=== PATIENT | male | born 1955 | race Caucasian/White ===

== ENCOUNTER 2017-03-16 21:58 | Inpatient (IN) | payer MEDICAID ==
[2017-03-16 22:50] LABS: ADD MAN DIFF? NO
[2017-03-16 22:55] LABS: WHITE BLOOD COUNT 6.7 10^3/ul (4.8-10.8)
[2017-03-16 22:55] LABS: BASOPHILS % 0.3 % (0.0-2.0); EOSINOPHILS # 0.1 10^3/ul (0.0-0.5); EOSINOPHILS % 1.2 % (0.0-7.0); HEMOGLOBIN 11.3 g/dl (14.0-18.0); LYMPHOCYTES # 1.2 10^3/ul (0.8-2.9); LYMPHOCYTES % 18.4 % (15.0-51.0); MEAN CORPUSCULAR HEMOGLOBIN 32.5 pg (29.0-33.0); MEAN CORPUSCULAR HGB CONC 32.3 g/dl (32.0-37.0); MEAN CORPUSCULAR VOLUME 100.6 fl (82.0-101.0); MONOCYTE # 0.6 10^3/ul (0.3-0.9); MONOCYTES % 9.4 % (0.0-11.0); NEUTROPHIL # 4.7 10^3/ul (1.6-7.5); NEUTROPHILS % 70.4 % (39.0-77.0); PLATELET COUNT 196 10^3/UL (140-415); RED BLOOD COUNT 3.48 10^6/ul (4.70-6.10); RED CELL DISTRIBUTION WIDTH 13.3 % (11.5-14.5)
[2017-03-16] MEDS: SODIUM CHLORIDE 0.9% 1L BAG IV* (22:57)
[2017-03-16 23:15] LABS: INR 1.09; PROTIME 14.2 Sec (11.9-14.9); PT RATIO 1.1
[2017-03-16 23:22] LABS: ALANINE AMINOTRANSFERASE 33 IU/L (13-69); ALBUMIN 3.9 g/dl (3.3-4.9); ALBUMIN/GLOBULIN RATIO 1.21; ALKALINE PHOSPHATASE 98 IU/L (42-121); ANION GAP 19 (8-16); ASPARTATE AMINO TRANSFERASE 28 IU/L (15-46); BILIRUBIN,INDIRECT 0.2 mg/dl (0-1.1); BILIRUBIN,TOTAL 0.2 mg/dl (0.2-1.3); BLOOD UREA NITROGEN 19 mg/dl (7-20); CALCIUM 9.2 mg/dl (8.4-10.2); CARBON DIOXIDE 32 mmol/L (21-31); CHLORIDE 94 mmol/L (97-110); CREATININE 2.42 mg/dl (0.61-1.24); GLUCOSE 111 mg/dl (70-220); POTASSIUM 3.9 mmol/L (3.5-5.1); SODIUM 141 mmol/L (135-144); TOTAL PROTEIN 7.1 g/dl (6.1-8.1)
[2017-03-16 23:24] LABS: LACTIC ACID 2.8 mmol/L (0.5-2.0)
[2017-03-16 23:32] LABS: TROPONIN-I 0.035 ng/ml (0.00-0.12)
[2017-03-17] MEDS: CEFEPIME 2GM/50 ML (PMX) 50 ML IVPB (00:13)
[2017-03-17] MEDS: ONDANSETRON 4 MG INJ IV ×4 (00:30→09:44)
[2017-03-17] MEDS: NORepinephrine 8MG/250 ML (PMX 250 ML IV (01:07)
[2017-03-17 01:34] LABS: LACTIC ACID 1.4 mmol/L (0.5-2.0)
[2017-03-17] MEDS: morphine 4 MG/ML VIAL IV (01:50)
[2017-03-17 01:58] LABS: ADD UMIC NO; UR ASCORBIC ACID NEGATIVE (NEGATIVE); UR BILIRUBIN (Dip) NEGATIVE (NEGATIVE); UR BLOOD (Dip) NEGATIVE (NEGATIVE); UR CLARITY SLIGHTLY CLOUDY (CLEAR); UR COLOR YELLOW (YELLOW); UR GLUCOSE (Dip) NEGATIVE (NEGATIVE); UR KETONES (Dip) NEGATIVE (NEGATIVE); UR LEUKOCYTE ESTERASE (Dip) NEGATIVE Leu/ul (NEGATIVE); UR MUCUS FEW /HPF (NONE SEEN); UR NITRITE (Dip) NEGATIVE (NEGATIVE); UR RBC 1 /HPF (0-5); UR SPECIFIC GRAVITY (Dip) 1.009 (1.003-1.030); UR TOTAL PROTEIN (Dip) NEGATIVE (NEGATIVE); UR UROBILINOGEN (Dip) NEGATIVE (NEGATIVE); UR WBC 2 /HPF (0-5)
[2017-03-17 03:42] LABS: LACTIC ACID 0.9 mmol/L (0.5-2.0)
[2017-03-17] MEDS: SOD CHLORIDE 0.9% 1,000 ML IV (04:17)
[2017-03-17] MEDS: CLINDAMYCIN 900 MG/D5W (PMX) 50 ML IVPB (04:18)
[2017-03-17] MEDS: ASPIRIN 325 MG TAB PO (04:47)
[2017-03-17] MEDS: METOCLOPRAMIDE 10 MG INJ IV (04:47)
[2017-03-17] MEDS: morphine 10 MG INJ IV (04:48)
[2017-03-17 06:09] LABS: CREATINE KINASE 110 IU/L (23-200)
[2017-03-17 06:21] LABS: CK INDEX 2.6; CK-MB 2.85 ng/ml (0.0-2.4)
[2017-03-17] MEDS: HYDROmorphONE 1 MG/ML SYG IV (09:18)
[2017-03-17] MEDS ORDERED: NACL 0.9% 3 ML SYG IV (11:00)
[2017-03-17] MEDS ORDERED: DOCUSATE SODIUM 100 MG CAP PO (11:00)
[2017-03-17] MEDS ORDERED: IPRATROPIUM (NEB) 0.5 MG/2.5 ML AMP NEB (11:00)
[2017-03-17] MEDS ORDERED: MAGNESIUM HYDROXIDE 30ML CUP PO (11:00)
[2017-03-17 11:28] LABS: CREATINE KINASE 123 IU/L (23-200)
[2017-03-17 11:37] LABS: CK INDEX 2.9; TROPONIN-I 0.083 ng/ml (0.00-0.12)
[2017-03-17 11:45] LABS: CK-MB 3.53 ng/ml (0.0-2.4)
[2017-03-17 12:18] LABS: ADD MAN DIFF? NO
[2017-03-17 12:20] LABS: WHITE BLOOD COUNT 5.1 10^3/ul (4.8-10.8)
[2017-03-17 12:20] LABS: BASOPHILS % 0.4 % (0.0-2.0); EOSINOPHILS # 0.1 10^3/ul (0.0-0.5); EOSINOPHILS % 2.1 % (0.0-7.0); HEMATOCRIT 26.3 % (42.0-52.0); HEMOGLOBIN 8.5 g/dl (14.0-18.0); LYMPHOCYTES % 19.9 % (15.0-51.0); MEAN CORPUSCULAR HEMOGLOBIN 33.1 pg (29.0-33.0); MEAN CORPUSCULAR HGB CONC 32.3 g/dl (32.0-37.0); MEAN CORPUSCULAR VOLUME 102.3 fl (82.0-101.0); MEAN PLATELET VOLUME 10.6 fl (7.4-10.4); MONOCYTE # 0.5 10^3/ul (0.3-0.9); MONOCYTES % 10.5 % (0.0-11.0); NEUTROPHIL # 3.4 10^3/ul (1.6-7.5); NEUTROPHILS % 66.9 % (39.0-77.0); PLATELET COUNT 150 10^3/UL (140-415); RED BLOOD COUNT 2.57 10^6/ul (4.70-6.10); RED CELL DISTRIBUTION WIDTH 13.4 % (11.5-14.5)
[2017-03-17 12:28] LABS: ANION GAP 12 (8-16); BLOOD UREA NITROGEN 16 mg/dl (7-20); CALCIUM 6.9 mg/dl (8.4-10.2); CARBON DIOXIDE 26 mmol/L (21-31); CHLORIDE 107 mmol/L (97-110); GLUCOSE 87 mg/dl (70-220); POTASSIUM 3.2 mmol/L (3.5-5.1); SODIUM 142 mmol/L (135-144)
[2017-03-17] MEDS ORDERED: SENNA TAB PO (12:30)
[2017-03-17] MEDS: ALBUTEROL/IPRATROPIUM (NEB) 3 ML AMP HHN ×3 (13:30→20:20)
[2017-03-17] MEDS: POTASSIUM CHLORIDE (SR) 20 MEQ TAB PO (15:06)
[2017-03-17] MEDS: MAGNESIUM SULFATE 4 GM/100 ML 100 ML IVPB (15:11)
[2017-03-17] MEDS: morphine 2 MG INJ IV (15:11)
[2017-03-17] MEDS: DRONABINOL 2.5 MG CAP PO (17:43)
[2017-03-17 20:26] LABS: CREATINE KINASE 97 IU/L (23-200)
[2017-03-17] MEDS: morphine (ER) 15 MG TAB PO (20:28)
[2017-03-17] MEDS: APIXABAN 5 MG TABLET PO (20:29)
[2017-03-17 20:38] LABS: CK INDEX 2.5; TROPONIN-I 0.038 ng/ml (0.00-0.12)
[2017-03-17 20:42] LABS: CK-MB 2.38 ng/ml (0.0-2.4)
[2017-03-17] MEDS ORDERED: FAMOTIDINE 20 MG TAB PO (21:00)
[2017-03-18] MEDS: ALBUTEROL/IPRATROPIUM (NEB) 3 ML AMP HHN ×6 (00:16→21:28)
[2017-03-18] MEDS: morphine 2 MG INJ IV ×5 (00:35→23:47)
[2017-03-18 01:34] LABS: CREATINE KINASE 79 IU/L (23-200)
[2017-03-18 01:46] LABS: CK INDEX 2.4; TROPONIN-I 0.037 ng/ml (0.00-0.12)
[2017-03-18] MEDS: ACETAMINOPHEN 650MG/20.3ML CUP PO (03:37)
[2017-03-18] MEDS: PANTOPRAZOLE (EC) 40 MG TAB PO (06:42)
[2017-03-18] MEDS: LEVOTHYROXINE 75 MCG TAB PO (08:41)
[2017-03-18] MEDS: APIXABAN 5 MG TABLET PO ×2 (08:42→20:39)
[2017-03-18] MEDS: DRONABINOL 2.5 MG CAP PO ×3 (08:42→16:55)
[2017-03-18] MEDS: morphine (ER) 15 MG TAB PO ×2 (08:43→20:38)
[2017-03-18] MEDS: ESCITALOPRAM 10 MG TAB PO (08:44)
[2017-03-18 09:51] LABS: CREATINE KINASE 65 IU/L (23-200)
[2017-03-18 10:02] LABS: CK INDEX 1.9; TROPONIN-I 0.021 ng/ml (0.00-0.12)
[2017-03-18 10:04] LABS: CK-MB 1.21 ng/ml (0.0-2.4)
[2017-03-18 11:00] LABS: CHOLESTEROL 82 mg/dl (100-200)
[2017-03-18 11:00] LABS: CHOL/HDL RATIO 2.7 RATIO; HDL CHOLESTEROL 30 mg/dl (30-78); LDL CHOLESTEROL,CALCULATED 36 mg/dl; TRIGLYCERIDES 82 mg/dl (0-149)
[2017-03-18] MEDS: HYDROCODONE/HOMATROPINE 5ML CUP PO ×3 (12:19→22:34)
[2017-03-18] MEDS: ZOLPIDEM 5 MG TAB PO (23:46)
[2017-03-19] MEDS: ALBUTEROL/IPRATROPIUM (NEB) 3 ML AMP HHN ×6 (00:10→21:26)
[2017-03-19] MEDS: morphine 2 MG INJ IV ×4 (05:21→20:33)
[2017-03-19] MEDS: PANTOPRAZOLE (EC) 40 MG TAB PO (05:21)
[2017-03-19] MEDS: DRONABINOL 2.5 MG CAP PO ×3 (08:17→17:13)
[2017-03-19] MEDS: ESCITALOPRAM 10 MG TAB PO (08:18)
[2017-03-19] MEDS: APIXABAN 5 MG TABLET PO ×2 (08:18→20:32)
[2017-03-19] MEDS: morphine (ER) 15 MG TAB PO ×2 (08:18→20:32)
[2017-03-19] MEDS: LEVOTHYROXINE 75 MCG TAB PO (08:19)
[2017-03-19 09:04] LABS: ADD MAN DIFF? NO
[2017-03-19 09:19] LABS: WHITE BLOOD COUNT 3.9 10^3/ul (4.8-10.8)
[2017-03-19 09:19] LABS: BASOPHILS % 0.5 % (0.0-2.0); EOSINOPHILS # 0.1 10^3/ul (0.0-0.5); EOSINOPHILS % 3.6 % (0.0-7.0); HEMATOCRIT 27.3 % (42.0-52.0); HEMOGLOBIN 8.6 g/dl (14.0-18.0); LYMPHOCYTES # 0.7 10^3/ul (0.8-2.9); LYMPHOCYTES % 17.3 % (15.0-51.0); MEAN CORPUSCULAR HEMOGLOBIN 32.1 pg (29.0-33.0); MEAN CORPUSCULAR HGB CONC 31.5 g/dl (32.0-37.0); MEAN CORPUSCULAR VOLUME 101.9 fl (82.0-101.0); MEAN PLATELET VOLUME 10.4 fl (7.4-10.4); MONOCYTE # 0.4 10^3/ul (0.3-0.9); MONOCYTES % 9.4 % (0.0-11.0); NEUTROPHIL # 2.7 10^3/ul (1.6-7.5); NEUTROPHILS % 68.7 % (39.0-77.0); PLATELET COUNT 126 10^3/UL (140-415); RED BLOOD COUNT 2.68 10^6/ul (4.70-6.10); RED CELL DISTRIBUTION WIDTH 13.5 % (11.5-14.5)
[2017-03-19 09:47] LABS: ANION GAP 14 (8-16); BLOOD UREA NITROGEN 10 mg/dl (7-20); CALCIUM 8.6 mg/dl (8.4-10.2); CARBON DIOXIDE 32 mmol/L (21-31); CHLORIDE 99 mmol/L (97-110); CREATININE 1.11 mg/dl (0.61-1.24); GLUCOSE 103 mg/dl (70-220); POTASSIUM 3.7 mmol/L (3.5-5.1); SODIUM 141 mmol/L (135-144)
[2017-03-19] MEDS: HYDROCODONE/HOMATROPINE 5ML CUP PO (10:49)
[2017-03-19 16:32] LABS: B-TYPE NATRIURETIC PEPTIDE 2290 PG/ML (0-125)
[2017-03-19] MEDS: ONDANSETRON 4 MG INJ IV (22:09)
[2017-03-20] MEDS: morphine 2 MG INJ IV ×4 (01:07→15:48)
[2017-03-20] MEDS: ALBUTEROL/IPRATROPIUM (NEB) 3 ML AMP HHN ×6 (01:11→20:05)
[2017-03-20] MEDS: HYDROCODONE/HOMATROPINE 5ML CUP PO ×2 (01:15→11:49)
[2017-03-20] MEDS: PANTOPRAZOLE (EC) 40 MG TAB PO (06:18)
[2017-03-20] MEDS: LEVOTHYROXINE 75 MCG TAB PO (06:18)
[2017-03-20 06:26] LABS: ADD MAN DIFF? NO
[2017-03-20 06:29] LABS: BASOPHILS % 0.5 % (0.0-2.0); EOSINOPHILS # 0.2 10^3/ul (0.0-0.5); EOSINOPHILS % 3.9 % (0.0-7.0); HEMOGLOBIN 8.8 g/dl (14.0-18.0); LYMPHOCYTES # 0.9 10^3/ul (0.8-2.9); LYMPHOCYTES % 22.1 % (15.0-51.0); MEAN CORPUSCULAR HEMOGLOBIN 33.3 pg (29.0-33.0); MEAN CORPUSCULAR HGB CONC 32.6 g/dl (32.0-37.0); MEAN CORPUSCULAR VOLUME 102.3 fl (82.0-101.0); MEAN PLATELET VOLUME 10.4 fl (7.4-10.4); MONOCYTE # 0.4 10^3/ul (0.3-0.9); MONOCYTES % 8.8 % (0.0-11.0); NEUTROPHIL # 2.6 10^3/ul (1.6-7.5); NEUTROPHILS % 64.5 % (39.0-77.0); PLATELET COUNT 141 10^3/UL (140-415); RED BLOOD COUNT 2.64 10^6/ul (4.70-6.10); RED CELL DISTRIBUTION WIDTH 13.8 % (11.5-14.5)
[2017-03-20 06:29] LABS: WHITE BLOOD COUNT 4.1 10^3/ul (4.8-10.8)
[2017-03-20 07:34] LABS: ANION GAP 15 (8-16); BLOOD UREA NITROGEN 10 mg/dl (7-20); CARBON DIOXIDE 32 mmol/L (21-31); CHLORIDE 100 mmol/L (97-110); CREATININE 1.16 mg/dl (0.61-1.24); GLUCOSE 92 mg/dl (70-220); POTASSIUM 3.7 mmol/L (3.5-5.1); SODIUM 143 mmol/L (135-144)
[2017-03-20] MEDS: DRONABINOL 2.5 MG CAP PO ×3 (08:18→17:50)
[2017-03-20] MEDS: morphine (ER) 15 MG TAB PO ×2 (08:19→20:14)
[2017-03-20] MEDS: ESCITALOPRAM 10 MG TAB PO (08:19)
[2017-03-20] MEDS: APIXABAN 5 MG TABLET PO ×2 (08:19→20:13)
[2017-03-20] MEDS: GABAPENTIN 100 MG CAP NGT (20:13)
[2017-03-20] MEDS: FUROSEMIDE 20 MG INJ IV (20:14)
[2017-03-21] MEDS: morphine 2 MG INJ IV ×5 (00:23→14:52)
[2017-03-21] MEDS: HYDROCODONE/HOMATROPINE 5ML CUP PO ×2 (00:29→11:44)
[2017-03-21] MEDS: ALBUTEROL/IPRATROPIUM (NEB) 3 ML AMP HHN ×6 (01:00→21:39)
[2017-03-21] MEDS: LEVOTHYROXINE 75 MCG TAB PO (06:03)
[2017-03-21] MEDS: PANTOPRAZOLE (EC) 40 MG TAB PO (06:03)
[2017-03-21] MEDS: ONDANSETRON 4 MG INJ IV (07:14)
[2017-03-21] MEDS: DRONABINOL 2.5 MG CAP PO ×3 (08:13→17:17)
[2017-03-21] MEDS: morphine (ER) 15 MG TAB PO ×2 (08:14→20:41)
[2017-03-21] MEDS: GABAPENTIN 100 MG CAP NGT ×3 (08:14→20:40)
[2017-03-21] MEDS: ESCITALOPRAM 10 MG TAB PO (08:15)
[2017-03-21] MEDS: APIXABAN 5 MG TABLET PO ×2 (08:15→20:40)
[2017-03-21] MEDS: DOCUSATE SODIUM 100 MG CAP PO ×2 (08:17→20:40)
[2017-03-21 08:48] LABS: ADD MAN DIFF? NO
[2017-03-21 08:59] LABS: WHITE BLOOD COUNT 5.9 10^3/ul (4.8-10.8)
[2017-03-21 08:59] LABS: BASOPHILS % 0.5 % (0.0-2.0); EOSINOPHILS # 0.1 10^3/ul (0.0-0.5); EOSINOPHILS % 2.4 % (0.0-7.0); HEMATOCRIT 27.9 % (42.0-52.0); HEMOGLOBIN 8.9 g/dl (14.0-18.0); LYMPHOCYTES # 0.9 10^3/ul (0.8-2.9); LYMPHOCYTES % 15.3 % (15.0-51.0); MEAN CORPUSCULAR HEMOGLOBIN 32.5 pg (29.0-33.0); MEAN CORPUSCULAR HGB CONC 31.9 g/dl (32.0-37.0); MEAN CORPUSCULAR VOLUME 101.8 fl (82.0-101.0); MEAN PLATELET VOLUME 10.5 fl (7.4-10.4); MONOCYTE # 0.4 10^3/ul (0.3-0.9); MONOCYTES % 7.1 % (0.0-11.0); NEUTROPHIL # 4.4 10^3/ul (1.6-7.5); NEUTROPHILS % 74.4 % (39.0-77.0); PLATELET COUNT 151 10^3/UL (140-415); RED BLOOD COUNT 2.74 10^6/ul (4.70-6.10); RED CELL DISTRIBUTION WIDTH 13.9 % (11.5-14.5)
[2017-03-21 09:33] LABS: ANION GAP 10 (8-16); BLOOD UREA NITROGEN 11 mg/dl (7-20); CALCIUM 8.9 mg/dl (8.4-10.2); CARBON DIOXIDE 35 mmol/L (21-31); CHLORIDE 98 mmol/L (97-110); CREATININE 1.13 mg/dl (0.61-1.24); GLUCOSE 98 mg/dl (70-220); POTASSIUM 3.9 mmol/L (3.5-5.1); SODIUM 139 mmol/L (135-144)
[2017-03-22] MEDS: morphine 2 MG INJ IV ×2 (00:56→14:32)
[2017-03-22] MEDS: ALBUTEROL/IPRATROPIUM (NEB) 3 ML AMP HHN ×6 (01:00→21:40)
[2017-03-22] MEDS: HYDROCODONE/HOMATROPINE 5ML CUP PO ×2 (01:07→17:09)
[2017-03-22] MEDS: PANTOPRAZOLE (EC) 40 MG TAB PO (06:57)
[2017-03-22] MEDS: LEVOTHYROXINE 75 MCG TAB PO (06:57)
[2017-03-22] MEDS: DRONABINOL 2.5 MG CAP PO ×3 (06:57→17:08)
[2017-03-22] MEDS: DOCUSATE SODIUM 100 MG CAP PO ×2 (08:05→21:11)
[2017-03-22] MEDS: ESCITALOPRAM 10 MG TAB PO (08:05)
[2017-03-22] MEDS: morphine (ER) 15 MG TAB PO ×2 (08:05→21:11)
[2017-03-22] MEDS: GABAPENTIN 100 MG CAP NGT ×3 (08:05→21:11)
[2017-03-22] MEDS: APIXABAN 5 MG TABLET PO ×2 (08:05→21:11)
[2017-03-22] MEDS: FUROSEMIDE 20 MG INJ IV (16:17)
[2017-03-22] MEDS: morphine 4 MG/ML VIAL IV (18:24)
[2017-03-23] MEDS: ALBUTEROL/IPRATROPIUM (NEB) 3 ML AMP HHN ×6 (01:20→20:21)
[2017-03-23] MEDS: HYDROCODONE/HOMATROPINE 5ML CUP PO (02:12)
[2017-03-23] MEDS: morphine 4 MG/ML VIAL IV ×3 (02:12→17:58)
[2017-03-23] MEDS: PANTOPRAZOLE (EC) 40 MG TAB PO (06:36)
[2017-03-23] MEDS: LEVOTHYROXINE 75 MCG TAB PO (06:36)
[2017-03-23 09:11] LABS: ADD MAN DIFF? NO
[2017-03-23 09:14] LABS: WHITE BLOOD COUNT 4.3 10^3/ul (4.8-10.8)
[2017-03-23 09:14] LABS: BASOPHILS % 0.5 % (0.0-2.0); EOSINOPHILS # 0.1 10^3/ul (0.0-0.5); EOSINOPHILS % 2.8 % (0.0-7.0); HEMATOCRIT 26.7 % (42.0-52.0); HEMOGLOBIN 8.6 g/dl (14.0-18.0); LYMPHOCYTES # 0.8 10^3/ul (0.8-2.9); LYMPHOCYTES % 18.5 % (15.0-51.0); MEAN CORPUSCULAR HEMOGLOBIN 32.8 pg (29.0-33.0); MEAN CORPUSCULAR HGB CONC 32.2 g/dl (32.0-37.0); MEAN CORPUSCULAR VOLUME 101.9 fl (82.0-101.0); MEAN PLATELET VOLUME 10.9 fl (7.4-10.4); MONOCYTE # 0.4 10^3/ul (0.3-0.9); NEUTROPHIL # 2.9 10^3/ul (1.6-7.5); PLATELET COUNT 162 10^3/UL (140-415); RED BLOOD COUNT 2.62 10^6/ul (4.70-6.10); RED CELL DISTRIBUTION WIDTH 13.4 % (11.5-14.5)
[2017-03-23] MEDS: DOCUSATE SODIUM 100 MG CAP PO ×2 (09:15→20:55)
[2017-03-23] MEDS: APIXABAN 5 MG TABLET PO ×2 (09:15→20:54)
[2017-03-23] MEDS: DRONABINOL 2.5 MG CAP PO ×3 (09:16→17:53)
[2017-03-23] MEDS: morphine (ER) 15 MG TAB PO ×2 (09:16→20:55)
[2017-03-23] MEDS: GABAPENTIN 100 MG CAP NGT ×3 (09:16→20:54)
[2017-03-23] MEDS: ESCITALOPRAM 10 MG TAB PO (09:16)
[2017-03-23 09:48] LABS: ANION GAP 11 (8-16); BLOOD UREA NITROGEN 13 mg/dl (7-20); CALCIUM 8.9 mg/dl (8.4-10.2); CARBON DIOXIDE 35 mmol/L (21-31); CHLORIDE 96 mmol/L (97-110); CREATININE 1.12 mg/dl (0.61-1.24); GLUCOSE 92 mg/dl (70-220); POTASSIUM 3.7 mmol/L (3.5-5.1); SODIUM 138 mmol/L (135-144)
[2017-03-23] MEDS: ONDANSETRON 4 MG INJ IV (17:58)
[2017-03-23] MEDS: FUROSEMIDE 20 MG INJ IV (20:59)
[2017-03-24] MEDS: HYDROCODONE/HOMATROPINE 5ML CUP PO ×2 (00:27→06:05)
[2017-03-24] MEDS: ALBUTEROL/IPRATROPIUM (NEB) 3 ML AMP HHN ×6 (04:38→21:12)
[2017-03-24] MEDS: PANTOPRAZOLE (EC) 40 MG TAB PO (06:01)
[2017-03-24] MEDS: LEVOTHYROXINE 75 MCG TAB PO (06:01)
[2017-03-24] MEDS: morphine 4 MG/ML VIAL IV ×3 (06:11→18:29)
[2017-03-24] MEDS: APIXABAN 5 MG TABLET PO ×2 (08:31→21:36)
[2017-03-24] MEDS: DOCUSATE SODIUM 100 MG CAP PO ×2 (08:31→21:35)
[2017-03-24] MEDS: DRONABINOL 2.5 MG CAP PO ×3 (08:31→17:58)
[2017-03-24] MEDS: ESCITALOPRAM 10 MG TAB PO (08:31)
[2017-03-24] MEDS: morphine (ER) 15 MG TAB PO ×2 (08:32→21:35)
[2017-03-24] MEDS: GABAPENTIN 100 MG CAP NGT ×3 (08:32→21:35)
[2017-03-24] MEDS: ONDANSETRON 4 MG INJ IV (15:42)
[2017-03-25] MEDS: ALBUTEROL/IPRATROPIUM (NEB) 3 ML AMP HHN ×6 (01:23→21:02)
[2017-03-25] MEDS: morphine 4 MG/ML VIAL IV ×5 (01:29→19:25)
[2017-03-25] MEDS: LEVOTHYROXINE 75 MCG TAB PO (05:31)
[2017-03-25] MEDS: PANTOPRAZOLE (EC) 40 MG TAB PO (05:31)
[2017-03-25 06:32] LABS: ADD MAN DIFF? NO
[2017-03-25 06:43] LABS: BASOPHILS % 0.5 % (0.0-2.0); EOSINOPHILS # 0.1 10^3/ul (0.0-0.5); EOSINOPHILS % 2.8 % (0.0-7.0); HEMATOCRIT 25.8 % (42.0-52.0); HEMOGLOBIN 8.1 g/dl (14.0-18.0); LYMPHOCYTES % 22.3 % (15.0-51.0); MEAN CORPUSCULAR HEMOGLOBIN 31.9 pg (29.0-33.0); MEAN CORPUSCULAR HGB CONC 31.4 g/dl (32.0-37.0); MEAN CORPUSCULAR VOLUME 101.6 fl (82.0-101.0); MEAN PLATELET VOLUME 10.5 fl (7.4-10.4); MONOCYTE # 0.5 10^3/ul (0.3-0.9); MONOCYTES % 10.9 % (0.0-11.0); NEUTROPHIL # 2.7 10^3/ul (1.6-7.5); NEUTROPHILS % 63.3 % (39.0-77.0); PLATELET COUNT 165 10^3/UL (140-415); RED BLOOD COUNT 2.54 10^6/ul (4.70-6.10); RED CELL DISTRIBUTION WIDTH 13.5 % (11.5-14.5)
[2017-03-25 06:43] LABS: WHITE BLOOD COUNT 4.3 10^3/ul (4.8-10.8)
[2017-03-25 07:10] LABS: ANION GAP 13 (8-16); BLOOD UREA NITROGEN 15 mg/dl (7-20); CALCIUM 8.5 mg/dl (8.4-10.2); CARBON DIOXIDE 34 mmol/L (21-31); CHLORIDE 96 mmol/L (97-110); CREATININE 1.12 mg/dl (0.61-1.24); GLUCOSE 91 mg/dl (70-220); POTASSIUM 3.9 mmol/L (3.5-5.1); SODIUM 139 mmol/L (135-144)
[2017-03-25] MEDS: DRONABINOL 2.5 MG CAP PO ×3 (08:06→17:23)
[2017-03-25] MEDS: ESCITALOPRAM 10 MG TAB PO (08:06)
[2017-03-25] MEDS: APIXABAN 5 MG TABLET PO ×2 (08:07→20:47)
[2017-03-25] MEDS: DOCUSATE SODIUM 100 MG CAP PO ×2 (08:07→20:46)
[2017-03-25] MEDS: morphine (ER) 15 MG TAB PO ×2 (08:07→20:46)
[2017-03-25] MEDS: GABAPENTIN 100 MG CAP NGT ×3 (08:07→20:46)
[2017-03-25] MEDS: HYDROCODONE/HOMATROPINE 5ML CUP PO (10:15)
[2017-03-25] MEDS: ONDANSETRON 4 MG INJ IV (15:25)
[2017-03-26] MEDS: ALBUTEROL/IPRATROPIUM (NEB) 3 ML AMP HHN ×6 (01:00→20:46)
[2017-03-26] MEDS: PANTOPRAZOLE (EC) 40 MG TAB PO (08:13)
[2017-03-26] MEDS: DOCUSATE SODIUM 100 MG CAP PO ×2 (08:13→21:04)
[2017-03-26] MEDS: LEVOTHYROXINE 75 MCG TAB PO (08:13)
[2017-03-26] MEDS: morphine (ER) 15 MG TAB PO ×2 (08:13→21:04)
[2017-03-26] MEDS: ESCITALOPRAM 10 MG TAB PO (08:13)
[2017-03-26] MEDS: GABAPENTIN 100 MG CAP NGT ×3 (08:13→21:04)
[2017-03-26] MEDS: DRONABINOL 2.5 MG CAP PO ×3 (08:14→17:28)
[2017-03-26] MEDS: morphine 4 MG/ML VIAL IV ×4 (08:14→18:22)
[2017-03-26] MEDS: HYDROCODONE/HOMATROPINE 5ML CUP PO (13:09)
[2017-03-26] MEDS: DEXTROSE 5%-0.45% NACL 1,000 ML IV (14:00)
[2017-03-26] MEDS: COLCHICINE 0.6 MG TAB PO (21:04)
[2017-03-27] MEDS: morphine 4 MG/ML VIAL IV ×5 (00:27→17:24)
[2017-03-27] MEDS: ALBUTEROL/IPRATROPIUM (NEB) 3 ML AMP HHN ×6 (01:10→21:14)
[2017-03-27] MEDS: PANTOPRAZOLE (EC) 40 MG TAB PO (07:11)
[2017-03-27] MEDS: LEVOTHYROXINE 75 MCG TAB PO (07:11)
[2017-03-27] MEDS: COLCHICINE 0.6 MG TAB PO ×2 (11:31→21:06)
[2017-03-27] MEDS: HYDROCODONE/HOMATROPINE 5ML CUP PO ×2 (11:31→17:24)
[2017-03-27] MEDS: GABAPENTIN 100 MG CAP NGT ×3 (11:34→21:07)
[2017-03-27] MEDS: DRONABINOL 2.5 MG CAP PO ×3 (11:34→17:24)
[2017-03-27] MEDS: ESCITALOPRAM 10 MG TAB PO (11:34)
[2017-03-27] MEDS: DOCUSATE SODIUM 100 MG CAP PO ×2 (11:34→21:06)
[2017-03-27] MEDS: morphine (ER) 15 MG TAB PO ×2 (11:34→21:07)
[2017-03-27] MEDS: DEXTROSE 5%-0.45% NACL 1,000 ML IV (14:00)
[2017-03-28] MEDS: HYDROCODONE/HOMATROPINE 5ML CUP PO (01:13)
[2017-03-28] MEDS: ZOLPIDEM 5 MG TAB PO (01:13)
[2017-03-28] MEDS: ALBUTEROL/IPRATROPIUM (NEB) 3 ML AMP HHN ×6 (01:42→21:24)
[2017-03-28] MEDS: morphine 4 MG/ML VIAL IV ×3 (01:44→18:36)
[2017-03-28] MEDS: DRONABINOL 2.5 MG CAP PO ×3 (05:56→18:31)
[2017-03-28] MEDS: PANTOPRAZOLE (EC) 40 MG TAB PO (05:56)
[2017-03-28] MEDS: LEVOTHYROXINE 75 MCG TAB PO (05:56)
[2017-03-28 09:11] LABS: ADD MAN DIFF? NO
[2017-03-28] MEDS: DOCUSATE SODIUM 100 MG CAP PO ×2 (09:13→21:20)
[2017-03-28] MEDS: morphine (ER) 15 MG TAB PO ×2 (09:13→21:20)
[2017-03-28] MEDS: ESCITALOPRAM 10 MG TAB PO (09:14)
[2017-03-28] MEDS: COLCHICINE 0.6 MG TAB PO ×2 (09:14→21:20)
[2017-03-28] MEDS: GABAPENTIN 100 MG CAP NGT ×3 (09:14→21:19)
[2017-03-28 09:20] LABS: WHITE BLOOD COUNT 3.9 10^3/ul (4.8-10.8)
[2017-03-28 09:20] LABS: ABNORMAL IP MESSAGE 1; BASOPHILS % 0.5 % (0.0-2.0); EOSINOPHILS # 0.1 10^3/ul (0.0-0.5); EOSINOPHILS % 3.6 % (0.0-7.0); HEMATOCRIT 26.2 % (42.0-52.0); HEMOGLOBIN 8.2 g/dl (14.0-18.0); LYMPHOCYTES # 0.6 10^3/ul (0.8-2.9); LYMPHOCYTES % 14.5 % (15.0-51.0); MEAN CORPUSCULAR HEMOGLOBIN 32.2 pg (29.0-33.0); MEAN CORPUSCULAR HGB CONC 31.3 g/dl (32.0-37.0); MEAN CORPUSCULAR VOLUME 102.7 fl (82.0-101.0); MEAN PLATELET VOLUME 10.9 fl (7.4-10.4); MONOCYTE # 0.4 10^3/ul (0.3-0.9); MONOCYTES % 9.6 % (0.0-11.0); NEUTROPHIL # 2.8 10^3/ul (1.6-7.5); PLATELET COUNT 155 10^3/UL (140-415); POSITIVE DIFF @See below; RED BLOOD COUNT 2.55 10^6/ul (4.70-6.10); RED CELL DISTRIBUTION WIDTH 13.8 % (11.5-14.5)
[2017-03-28 09:46] LABS: ANION GAP 11 (8-16); BLOOD UREA NITROGEN 16 mg/dl (7-20); CALCIUM 8.9 mg/dl (8.4-10.2); CARBON DIOXIDE 33 mmol/L (21-31); CHLORIDE 97 mmol/L (97-110); CREATININE 1.11 mg/dl (0.61-1.24); GLUCOSE 111 mg/dl (70-220); SODIUM 137 mmol/L (135-144)
[2017-03-29] MEDS: morphine 4 MG/ML VIAL IV ×3 (00:08→17:54)
[2017-03-29] MEDS: ALBUTEROL/IPRATROPIUM (NEB) 3 ML AMP HHN ×5 (01:00→20:29)
[2017-03-29] MEDS: ONDANSETRON 4 MG INJ IV (01:09)
[2017-03-29] MEDS: GUAIFENESIN LA 600 MG TABSR PO ×2 (01:13→11:48)
[2017-03-29] MEDS: PANTOPRAZOLE (EC) 40 MG TAB PO (05:45)
[2017-03-29] MEDS: LEVOTHYROXINE 75 MCG TAB PO (05:45)
[2017-03-29 07:34] LABS: ADD MAN DIFF? NO
[2017-03-29 07:40] LABS: BASOPHILS % 0.3 % (0.0-2.0); EOSINOPHILS # 0.1 10^3/ul (0.0-0.5); EOSINOPHILS % 1.7 % (0.0-7.0); HEMATOCRIT 29.1 % (42.0-52.0); HEMOGLOBIN 9.1 g/dl (14.0-18.0); LYMPHOCYTES # 0.9 10^3/ul (0.8-2.9); LYMPHOCYTES % 14.7 % (15.0-51.0); MEAN CORPUSCULAR HEMOGLOBIN 32.5 pg (29.0-33.0); MEAN CORPUSCULAR HGB CONC 31.3 g/dl (32.0-37.0); MEAN CORPUSCULAR VOLUME 103.9 fl (82.0-101.0); MEAN PLATELET VOLUME 10.3 fl (7.4-10.4); MONOCYTE # 0.6 10^3/ul (0.3-0.9); MONOCYTES % 9.5 % (0.0-11.0); NEUTROPHIL # 4.4 10^3/ul (1.6-7.5); NEUTROPHILS % 73.3 % (39.0-77.0); PLATELET COUNT 168 10^3/UL (140-415); RED CELL DISTRIBUTION WIDTH 13.8 % (11.5-14.5)
[2017-03-29 08:30] LABS: ANION GAP 12 (8-16); BLOOD UREA NITROGEN 17 mg/dl (7-20); CALCIUM 9.4 mg/dl (8.4-10.2); CARBON DIOXIDE 32 mmol/L (21-31); CHLORIDE 100 mmol/L (97-110); CREATININE 1.06 mg/dl (0.61-1.24); GLUCOSE 87 mg/dl (70-220); POTASSIUM 4.1 mmol/L (3.5-5.1); SODIUM 140 mmol/L (135-144)
[2017-03-29] MEDS: COLCHICINE 0.6 MG TAB PO ×2 (08:59→21:00)
[2017-03-29] MEDS: GABAPENTIN 100 MG CAP NGT ×3 (09:00→21:00)
[2017-03-29] MEDS: DOCUSATE SODIUM 100 MG CAP PO ×2 (09:00→21:00)
[2017-03-29] MEDS: morphine (ER) 15 MG TAB PO ×2 (09:00→21:01)
[2017-03-29] MEDS: ESCITALOPRAM 10 MG TAB PO (09:00)
[2017-03-29] MEDS: DRONABINOL 2.5 MG CAP PO ×3 (09:00→17:40)
[2017-03-29] MEDS ORDERED: GUAIFENESIN LA 600 MG TABSR PO (13:00)
[2017-03-29] MEDS: SOD CHLORIDE 0.9% 250 ML IV (15:54)
[2017-03-29] MEDS: GUAIFENESIN 20 MG/ML 5ML CUP PO (21:04)
[2017-03-30] MEDS: ALBUTEROL/IPRATROPIUM (NEB) 3 ML AMP HHN ×6 (00:47→21:09)
[2017-03-30] MEDS: morphine 4 MG/ML VIAL IV ×4 (04:46→19:42)
[2017-03-30] MEDS: GUAIFENESIN 20 MG/ML 5ML CUP PO ×3 (04:46→21:37)
[2017-03-30] MEDS: LEVOTHYROXINE 75 MCG TAB PO (04:52)
[2017-03-30] MEDS: PANTOPRAZOLE (EC) 40 MG TAB PO (04:52)
[2017-03-30 08:41] LABS: ADD MAN DIFF? NO
[2017-03-30 08:45] LABS: WHITE BLOOD COUNT 8.6 10^3/ul (4.8-10.8)
[2017-03-30 08:45] LABS: BASOPHILS % 0.2 % (0.0-2.0); EOSINOPHILS % 0.1 % (0.0-7.0); HEMATOCRIT 28.1 % (42.0-52.0); HEMOGLOBIN 8.9 g/dl (14.0-18.0); LYMPHOCYTES # 0.8 10^3/ul (0.8-2.9); LYMPHOCYTES % 9.3 % (15.0-51.0); MEAN CORPUSCULAR HEMOGLOBIN 32.6 pg (29.0-33.0); MEAN CORPUSCULAR HGB CONC 31.7 g/dl (32.0-37.0); MEAN CORPUSCULAR VOLUME 102.9 fl (82.0-101.0); MEAN PLATELET VOLUME 10.7 fl (7.4-10.4); MONOCYTE # 0.7 10^3/ul (0.3-0.9); MONOCYTES % 8.2 % (0.0-11.0); NEUTROPHILS % 81.8 % (39.0-77.0); PLATELET COUNT 161 10^3/UL (140-415); RED BLOOD COUNT 2.73 10^6/ul (4.70-6.10); RED CELL DISTRIBUTION WIDTH 13.7 % (11.5-14.5)
[2017-03-30 09:01] LABS: ANION GAP 12 (8-16); BLOOD UREA NITROGEN 15 mg/dl (7-20); CALCIUM 8.7 mg/dl (8.4-10.2); CARBON DIOXIDE 32 mmol/L (21-31); CHLORIDE 99 mmol/L (97-110); CREATININE 0.98 mg/dl (0.61-1.24); GLUCOSE 98 mg/dl (70-220); POTASSIUM 3.8 mmol/L (3.5-5.1); SODIUM 139 mmol/L (135-144)
[2017-03-30] MEDS: DOCUSATE SODIUM 100 MG CAP PO ×2 (09:24→21:33)
[2017-03-30] MEDS: DRONABINOL 2.5 MG CAP PO ×3 (09:24→17:41)
[2017-03-30] MEDS: GABAPENTIN 100 MG CAP NGT ×3 (09:24→21:33)
[2017-03-30] MEDS: ESCITALOPRAM 10 MG TAB PO (09:24)
[2017-03-30] MEDS: morphine (ER) 15 MG TAB PO ×2 (09:24→21:34)
[2017-03-30] MEDS: COLCHICINE 0.6 MG TAB PO (09:24)
[2017-03-30] MEDS: ONDANSETRON 4 MG INJ IV (11:31)
[2017-03-30] MEDS ORDERED: ALTEPLASE (CATHFLO) 2 MG INJ CATHETER (14:30)
[2017-03-30] MEDS: ALTEPLASE (CATHFLO) 2 MG INJ CATHETER (17:41)
[2017-03-30] MEDS: HYDROCODONE/HOMATROPINE 5ML CUP PO (19:41)
[2017-03-31] MEDS: ACETAMINOPHEN 650MG/20.3ML CUP PO (00:37)
[2017-03-31] MEDS: morphine 4 MG/ML VIAL IV ×5 (00:39→18:52)
[2017-03-31] MEDS: ALBUTEROL/IPRATROPIUM (NEB) 3 ML AMP HHN ×6 (01:00→21:12)
[2017-03-31] MEDS: PANTOPRAZOLE (EC) 40 MG TAB PO (05:52)
[2017-03-31] MEDS: LEVOTHYROXINE 75 MCG TAB PO (05:52)
[2017-03-31] MEDS: GUAIFENESIN 20 MG/ML 5ML CUP PO ×3 (05:55→20:51)
[2017-03-31 08:14] LABS: ADD MAN DIFF? NO
[2017-03-31 08:19] LABS: BASOPHILS % 0.3 % (0.0-2.0); EOSINOPHILS # 0.1 10^3/ul (0.0-0.5); EOSINOPHILS % 0.7 % (0.0-7.0); HEMATOCRIT 25.6 % (42.0-52.0); HEMOGLOBIN 8.2 g/dl (14.0-18.0); LYMPHOCYTES # 0.6 10^3/ul (0.8-2.9); LYMPHOCYTES % 8.8 % (15.0-51.0); MEAN CORPUSCULAR HEMOGLOBIN 32.5 pg (29.0-33.0); MEAN CORPUSCULAR VOLUME 101.6 fl (82.0-101.0); MEAN PLATELET VOLUME 10.8 fl (7.4-10.4); MONOCYTE # 0.7 10^3/ul (0.3-0.9); MONOCYTES % 10.1 % (0.0-11.0); NEUTROPHIL # 5.6 10^3/ul (1.6-7.5); NEUTROPHILS % 79.8 % (39.0-77.0); PLATELET COUNT 137 10^3/UL (140-415); RED BLOOD COUNT 2.52 10^6/ul (4.70-6.10); RED CELL DISTRIBUTION WIDTH 13.4 % (11.5-14.5)
[2017-03-31 08:57] LABS: ANION GAP 13 (8-16); BLOOD UREA NITROGEN 17 mg/dl (7-20); CALCIUM 8.4 mg/dl (8.4-10.2); CARBON DIOXIDE 31 mmol/L (21-31); CHLORIDE 97 mmol/L (97-110); GLUCOSE 89 mg/dl (70-220); POTASSIUM 3.9 mmol/L (3.5-5.1); SODIUM 137 mmol/L (135-144)
[2017-03-31] MEDS: DOCUSATE SODIUM 100 MG CAP PO ×2 (09:18→20:50)
[2017-03-31] MEDS: DRONABINOL 2.5 MG CAP PO ×3 (09:18→17:07)
[2017-03-31] MEDS: ESCITALOPRAM 10 MG TAB PO (09:18)
[2017-03-31] MEDS: GABAPENTIN 100 MG CAP NGT ×3 (09:19→20:50)
[2017-03-31] MEDS: morphine (ER) 15 MG TAB PO ×2 (09:19→20:50)
[2017-03-31] MEDS: ONDANSETRON 4 MG INJ IV (09:50)
[2017-03-31 14:19] LABS: IMMEDIATE SPIN CROSSMATCH 1 1
[2017-03-31] MEDS: FUROSEMIDE 20 MG INJ IV (17:32)
[2017-04-01] MEDS: ALBUTEROL/IPRATROPIUM (NEB) 3 ML AMP HHN ×6 (01:00→21:00)
[2017-04-01] MEDS: morphine 4 MG/ML VIAL IV ×5 (02:17→17:22)
[2017-04-01] MEDS: GUAIFENESIN 20 MG/ML 5ML CUP PO ×2 (02:30→21:11)
[2017-04-01] MEDS: PANTOPRAZOLE (EC) 40 MG TAB PO (05:34)
[2017-04-01] MEDS: LEVOTHYROXINE 75 MCG TAB PO (05:34)
[2017-04-01] MEDS: HYDROCODONE/HOMATROPINE 5ML CUP PO (05:46)
[2017-04-01] MEDS: GABAPENTIN 100 MG CAP NGT ×3 (08:19→21:11)
[2017-04-01] MEDS: DOCUSATE SODIUM 100 MG CAP PO ×2 (08:19→21:12)
[2017-04-01] MEDS: ESCITALOPRAM 10 MG TAB PO (08:19)
[2017-04-01] MEDS: DRONABINOL 2.5 MG CAP PO ×3 (08:19→17:20)
[2017-04-01] MEDS: morphine (ER) 15 MG TAB PO ×2 (08:20→21:12)
[2017-04-01 08:30] LABS: ADD MAN DIFF? NO
[2017-04-01 08:37] LABS: BASOPHILS % 0.3 % (0.0-2.0); EOSINOPHILS % 0.7 % (0.0-7.0); HEMATOCRIT 27.6 % (42.0-52.0); HEMOGLOBIN 9.1 g/dl (14.0-18.0); LYMPHOCYTES # 0.6 10^3/ul (0.8-2.9); MEAN PLATELET VOLUME 10.5 fl (7.4-10.4); MONOCYTE # 0.7 10^3/ul (0.3-0.9); MONOCYTES % 11.1 % (0.0-11.0); NEUTROPHIL # 4.7 10^3/ul (1.6-7.5); NEUTROPHILS % 77.4 % (39.0-77.0); PLATELET COUNT 137 10^3/UL (140-415); RED BLOOD COUNT 2.76 10^6/ul (4.70-6.10); RED CELL DISTRIBUTION WIDTH 13.7 % (11.5-14.5)
[2017-04-01 09:02] LABS: ANION GAP 13 (8-16); BLOOD UREA NITROGEN 18 mg/dl (7-20); CALCIUM 8.5 mg/dl (8.4-10.2); CARBON DIOXIDE 31 mmol/L (21-31); CHLORIDE 96 mmol/L (97-110); CREATININE 0.98 mg/dl (0.61-1.24); GLUCOSE 93 mg/dl (70-220); POTASSIUM 3.6 mmol/L (3.5-5.1); SODIUM 136 mmol/L (135-144)
[2017-04-01] MEDS: CEFTRIAXONE 2 GM/50 ML (PMX) 50 ML IVPB (11:21)
[2017-04-01 11:40] LABS: ADD UMIC NO; UR ASCORBIC ACID NEGATIVE (NEGATIVE); UR BILIRUBIN (Dip) NEGATIVE (NEGATIVE); UR BLOOD (Dip) NEGATIVE (NEGATIVE); UR CLARITY CLEAR (CLEAR); UR COLOR YELLOW (YELLOW); UR GLUCOSE (Dip) NEGATIVE (NEGATIVE); UR KETONES (Dip) NEGATIVE (NEGATIVE); UR LEUKOCYTE ESTERASE (Dip) NEGATIVE Leu/ul (NEGATIVE); UR NITRITE (Dip) NEGATIVE (NEGATIVE); UR SPECIFIC GRAVITY (Dip) 1.012 (1.003-1.030); UR TOTAL PROTEIN (Dip) NEGATIVE (NEGATIVE); UR UROBILINOGEN (Dip) NEGATIVE (NEGATIVE)
[2017-04-01] MEDS: PROMETHAZINE/CODEINE 5ML CUP PO (23:49)
[2017-04-01] MEDS: HYDROmorphONE 2 MG/ML SYG IV (23:50)
[2017-04-02] MEDS: ALBUTEROL/IPRATROPIUM (NEB) 3 ML AMP HHN ×6 (01:39→21:17)
[2017-04-02] MEDS: PROMETHAZINE/CODEINE 5ML CUP PO ×4 (04:00→21:04)
[2017-04-02] MEDS: HYDROmorphONE 2 MG/ML SYG IV ×5 (04:00→21:03)
[2017-04-02] MEDS: LEVOTHYROXINE 75 MCG TAB PO (05:46)
[2017-04-02] MEDS: PANTOPRAZOLE (EC) 40 MG TAB PO (05:46)
[2017-04-02] MEDS: DRONABINOL 2.5 MG CAP PO ×3 (07:57→17:25)
[2017-04-02] MEDS: morphine (ER) 15 MG TAB PO ×2 (08:03→21:03)
[2017-04-02] MEDS: ESCITALOPRAM 10 MG TAB PO (08:03)
[2017-04-02] MEDS: DOCUSATE SODIUM 100 MG CAP PO ×2 (08:03→21:03)
[2017-04-02] MEDS: GABAPENTIN 100 MG CAP NGT ×3 (08:04→21:02)
[2017-04-02] MEDS: CEFTRIAXONE 2 GM/50 ML (PMX) 50 ML IVPB (11:44)
[2017-04-02] MEDS: METOPROLOL 25 MG TAB PO ×2 (14:43→21:03)
[2017-04-02] MEDS ORDERED: VANCOMYCIN IV PER PHARMACY XX (21:30)
[2017-04-03] MEDS: VANCOMYCIN 2 GM in SOD CHLORIDE 0.9% 500 ML IVPB (00:12)
[2017-04-03] MEDS: ALBUTEROL/IPRATROPIUM (NEB) 3 ML AMP HHN ×6 (00:46→21:52)
[2017-04-03] MEDS: PROMETHAZINE/CODEINE 5ML CUP PO ×4 (02:48→20:56)
[2017-04-03] MEDS: HYDROmorphONE 2 MG/ML SYG IV ×5 (02:49→20:56)
[2017-04-03] MEDS: LEVOTHYROXINE 75 MCG TAB PO (05:21)
[2017-04-03] MEDS: PANTOPRAZOLE (EC) 40 MG TAB PO (05:21)
[2017-04-03 07:43] LABS: ADD MAN DIFF? NO
[2017-04-03 07:47] LABS: WHITE BLOOD COUNT 4.4 10^3/ul (4.8-10.8)
[2017-04-03 07:47] LABS: ABNORMAL IP MESSAGE 1; BASOPHILS % 0.5 % (0.0-2.0); EOSINOPHILS # 0.2 10^3/ul (0.0-0.5); EOSINOPHILS % 3.4 % (0.0-7.0); HEMATOCRIT 26.9 % (42.0-52.0); HEMOGLOBIN 8.7 g/dl (14.0-18.0); LYMPHOCYTES # 0.6 10^3/ul (0.8-2.9); LYMPHOCYTES % 13.6 % (15.0-51.0); MEAN CORPUSCULAR HEMOGLOBIN 32.6 pg (29.0-33.0); MEAN CORPUSCULAR HGB CONC 32.3 g/dl (32.0-37.0); MEAN CORPUSCULAR VOLUME 100.7 fl (82.0-101.0); MONOCYTE # 0.6 10^3/ul (0.3-0.9); MONOCYTES % 13.6 % (0.0-11.0); NEUTROPHILS % 68.7 % (39.0-77.0); PLATELET COUNT 144 10^3/UL (140-415); POSITIVE DIFF @See below; RED BLOOD COUNT 2.67 10^6/ul (4.70-6.10); RED CELL DISTRIBUTION WIDTH 13.6 % (11.5-14.5)
[2017-04-03 08:10] LABS: ALANINE AMINOTRANSFERASE 36 IU/L (13-69); ALBUMIN 3.2 g/dl (3.3-4.9); ALBUMIN/GLOBULIN RATIO 1.14; ALKALINE PHOSPHATASE 111 IU/L (42-121); ANION GAP 13 (8-16); ASPARTATE AMINO TRANSFERASE 27 IU/L (15-46); BILIRUBIN,INDIRECT 0.1 mg/dl (0-1.1); BILIRUBIN,TOTAL 0.1 mg/dl (0.2-1.3); BLOOD UREA NITROGEN 14 mg/dl (7-20); CALCIUM 8.6 mg/dl (8.4-10.2); CARBON DIOXIDE 31 mmol/L (21-31); CHLORIDE 97 mmol/L (97-110); CREATININE 0.96 mg/dl (0.61-1.24); GLUCOSE 94 mg/dl (70-220); POTASSIUM 3.8 mmol/L (3.5-5.1); SODIUM 137 mmol/L (135-144)
[2017-04-03] MEDS: DOCUSATE SODIUM 100 MG CAP PO ×2 (10:07→20:44)
[2017-04-03] MEDS: morphine (ER) 15 MG TAB PO ×2 (10:07→20:45)
[2017-04-03] MEDS: DRONABINOL 2.5 MG CAP PO ×3 (10:07→17:45)
[2017-04-03] MEDS: GABAPENTIN 100 MG CAP NGT ×3 (10:07→20:44)
[2017-04-03] MEDS: ESCITALOPRAM 10 MG TAB PO (10:08)
[2017-04-03] MEDS: METOPROLOL 25 MG TAB PO ×2 (10:08→20:45)
[2017-04-03] MEDS: CEFTRIAXONE 2 GM/50 ML (PMX) 50 ML IVPB (11:22)
[2017-04-03] MEDS: VANCOMYCIN 1.25 GM in SOD CHLORIDE 0.45% 250 ML IVPB ×2 (12:45→23:55)
[2017-04-03] MEDS: HYDROCODONE/HOMATROPINE 5ML CUP PO (12:59)
[2017-04-03] MEDS: GUAIFENESIN 20 MG/ML 5ML CUP PO (18:37)
[2017-04-04] MEDS: PROMETHAZINE/CODEINE 5ML CUP PO ×4 (01:38→22:02)
[2017-04-04] MEDS: HYDROmorphONE 2 MG/ML SYG IV ×5 (01:38→22:02)
[2017-04-04] MEDS: ALBUTEROL/IPRATROPIUM (NEB) 3 ML AMP HHN ×6 (01:47→21:20)
[2017-04-04] MEDS: LEVOTHYROXINE 75 MCG TAB PO (04:46)
[2017-04-04] MEDS: PANTOPRAZOLE (EC) 40 MG TAB PO (04:46)
[2017-04-04] MEDS: METOPROLOL 25 MG TAB PO ×2 (09:00→22:06)
[2017-04-04] MEDS: DOCUSATE SODIUM 100 MG CAP PO ×2 (09:00→22:06)
[2017-04-04] MEDS: morphine (ER) 15 MG TAB PO ×2 (09:00→22:05)
[2017-04-04] MEDS: DRONABINOL 2.5 MG CAP PO ×3 (09:00→17:24)
[2017-04-04] MEDS: ESCITALOPRAM 10 MG TAB PO (09:00)
[2017-04-04] MEDS: GABAPENTIN 100 MG CAP NGT ×3 (09:00→22:05)
[2017-04-04 09:33] LABS: ADD MAN DIFF? NO
[2017-04-04 09:37] LABS: WHITE BLOOD COUNT 4.3 10^3/ul (4.8-10.8)
[2017-04-04 09:37] LABS: BASOPHILS % 0.7 % (0.0-2.0); EOSINOPHILS # 0.2 10^3/ul (0.0-0.5); HEMATOCRIT 27.7 % (42.0-52.0); HEMOGLOBIN 8.8 g/dl (14.0-18.0); LYMPHOCYTES # 0.6 10^3/ul (0.8-2.9); LYMPHOCYTES % 14.2 % (15.0-51.0); MEAN CORPUSCULAR HEMOGLOBIN 32.2 pg (29.0-33.0); MEAN CORPUSCULAR HGB CONC 31.8 g/dl (32.0-37.0); MEAN CORPUSCULAR VOLUME 101.5 fl (82.0-101.0); MEAN PLATELET VOLUME 10.5 fl (7.4-10.4); MONOCYTE # 0.6 10^3/ul (0.3-0.9); MONOCYTES % 13.5 % (0.0-11.0); NEUTROPHIL # 2.9 10^3/ul (1.6-7.5); NEUTROPHILS % 67.4 % (39.0-77.0); PLATELET COUNT 157 10^3/UL (140-415); RED BLOOD COUNT 2.73 10^6/ul (4.70-6.10); RED CELL DISTRIBUTION WIDTH 13.6 % (11.5-14.5)
[2017-04-04] MEDS: ALBUTEROL 0.083% (NEB) 2.5 MG/3 ML AMP NEB (09:40)
[2017-04-04 10:15] LABS: ANION GAP 11 (8-16); BLOOD UREA NITROGEN 13 mg/dl (7-20); CALCIUM 9.1 mg/dl (8.4-10.2); CARBON DIOXIDE 34 mmol/L (21-31); CHLORIDE 99 mmol/L (97-110); CREATININE 0.94 mg/dl (0.61-1.24); GLUCOSE 93 mg/dl (70-220); POTASSIUM 3.7 mmol/L (3.5-5.1); SODIUM 140 mmol/L (135-144)
[2017-04-04] MEDS: CEFTRIAXONE 2 GM/50 ML (PMX) 50 ML IVPB (11:45)
[2017-04-04] MEDS: ALTEPLASE (CATHFLO) 2 MG INJ CATHETER (13:17)
[2017-04-05] MEDS: ALBUTEROL/IPRATROPIUM (NEB) 3 ML AMP HHN ×6 (00:48→20:35)
[2017-04-05] MEDS: PROMETHAZINE/CODEINE 5ML CUP PO ×3 (01:19→20:18)
[2017-04-05] MEDS: HYDROmorphONE 2 MG/ML SYG IV ×5 (01:19→20:18)
[2017-04-05] MEDS: LEVOTHYROXINE 75 MCG TAB PO (04:30)
[2017-04-05] MEDS: PANTOPRAZOLE (EC) 40 MG TAB PO (04:30)
[2017-04-05 08:19] LABS: ADD MAN DIFF? NO
[2017-04-05 08:20] LABS: ABNORMAL IP MESSAGE 1; BASOPHILS % 1.1 % (0.0-2.0); EOSINOPHILS # 0.1 10^3/ul (0.0-0.5); EOSINOPHILS % 3.3 % (0.0-7.0); HEMATOCRIT 32.9 % (42.0-52.0); HEMOGLOBIN 10.4 g/dl (14.0-18.0); LYMPHOCYTES # 0.5 10^3/ul (0.8-2.9); LYMPHOCYTES % 14.8 % (15.0-51.0); MEAN CORPUSCULAR HEMOGLOBIN 31.9 pg (29.0-33.0); MEAN CORPUSCULAR HGB CONC 31.6 g/dl (32.0-37.0); MEAN CORPUSCULAR VOLUME 100.9 fl (82.0-101.0); MEAN PLATELET VOLUME 10.7 fl (7.4-10.4); MONOCYTE # 0.4 10^3/ul (0.3-0.9); MONOCYTES % 10.7 % (0.0-11.0); NEUTROPHIL # 2.6 10^3/ul (1.6-7.5); NEUTROPHILS % 70.1 % (39.0-77.0); PLATELET COUNT 140 10^3/UL (140-415); POSITIVE DIFF @See below; RED BLOOD COUNT 3.26 10^6/ul (4.70-6.10); RED CELL DISTRIBUTION WIDTH 13.5 % (11.5-14.5)
[2017-04-05 08:20] LABS: WHITE BLOOD COUNT 3.7 10^3/ul (4.8-10.8)
[2017-04-05 08:50] LABS: ANION GAP 8 (8-16)
[2017-04-05 08:51] LABS: BLOOD UREA NITROGEN 11 mg/dl (7-20); CALCIUM 8.8 mg/dl (8.4-10.2); CARBON DIOXIDE 36 mmol/L (21-31); CHLORIDE 98 mmol/L (97-110); CREATININE 1.05 mg/dl (0.61-1.24); GLUCOSE 89 mg/dl (70-220); POTASSIUM 3.9 mmol/L (3.5-5.1); SODIUM 138 mmol/L (135-144)
[2017-04-05] MEDS: DOCUSATE SODIUM 100 MG CAP PO ×2 (09:08→20:16)
[2017-04-05] MEDS: GABAPENTIN 100 MG CAP NGT ×3 (09:09→20:17)
[2017-04-05] MEDS: DRONABINOL 2.5 MG CAP PO ×3 (09:09→17:15)
[2017-04-05] MEDS: ESCITALOPRAM 10 MG TAB PO (09:09)
[2017-04-05] MEDS: morphine (ER) 15 MG TAB PO ×2 (09:10→20:17)
[2017-04-05] MEDS: METOPROLOL 25 MG TAB PO ×2 (09:10→20:19)
[2017-04-05] MEDS: CEFTRIAXONE 2 GM/50 ML (PMX) 50 ML IVPB (11:52)
[2017-04-05] MEDS: HYDROCODONE/HOMATROPINE 5ML CUP PO (12:25)
[2017-04-05] MEDS: FUROSEMIDE 20 MG INJ IV (17:16)
[2017-04-06] MEDS: PROMETHAZINE/CODEINE 5ML CUP PO ×2 (01:23→06:03)
[2017-04-06] MEDS: HYDROmorphONE 2 MG/ML SYG IV ×2 (01:23→06:03)
[2017-04-06] MEDS: ALBUTEROL/IPRATROPIUM (NEB) 3 ML AMP HHN ×5 (01:57→20:45)
[2017-04-06] MEDS: PANTOPRAZOLE (EC) 40 MG TAB PO (06:03)
[2017-04-06] MEDS: LEVOTHYROXINE 75 MCG TAB PO (06:03)
[2017-04-06 07:19] LABS: ADD MAN DIFF? NO
[2017-04-06 07:24] LABS: WHITE BLOOD COUNT 4.2 10^3/ul (4.8-10.8)
[2017-04-06 07:24] LABS: BASOPHILS % 0.5 % (0.0-2.0); EOSINOPHILS # 0.1 10^3/ul (0.0-0.5); EOSINOPHILS % 3.3 % (0.0-7.0); HEMATOCRIT 27.4 % (42.0-52.0); HEMOGLOBIN 8.7 g/dl (14.0-18.0); LYMPHOCYTES # 0.6 10^3/ul (0.8-2.9); LYMPHOCYTES % 15.3 % (15.0-51.0); MEAN CORPUSCULAR HGB CONC 31.8 g/dl (32.0-37.0); MEAN CORPUSCULAR VOLUME 100.7 fl (82.0-101.0); MEAN PLATELET VOLUME 10.3 fl (7.4-10.4); MONOCYTE # 0.5 10^3/ul (0.3-0.9); MONOCYTES % 10.8 % (0.0-11.0); NEUTROPHIL # 2.9 10^3/ul (1.6-7.5); NEUTROPHILS % 69.9 % (39.0-77.0); PLATELET COUNT 166 10^3/UL (140-415); RED BLOOD COUNT 2.72 10^6/ul (4.70-6.10); RED CELL DISTRIBUTION WIDTH 13.6 % (11.5-14.5)
[2017-04-06 07:41] LABS: ANION GAP 11 (8-16); BLOOD UREA NITROGEN 9 mg/dl (7-20); CARBON DIOXIDE 36 mmol/L (21-31); CHLORIDE 98 mmol/L (97-110); CREATININE 0.92 mg/dl (0.61-1.24); GLUCOSE 97 mg/dl (70-220); POTASSIUM 3.7 mmol/L (3.5-5.1); SODIUM 141 mmol/L (135-144)
[2017-04-06] MEDS: LIDOCAINE 1% (MPF) 5 ML VIAL SC (08:12)
[2017-04-06] MEDS: GABAPENTIN 100 MG CAP NGT ×3 (08:14→20:54)
[2017-04-06] MEDS: morphine (ER) 15 MG TAB PO ×2 (08:14→20:54)
[2017-04-06] MEDS: DRONABINOL 2.5 MG CAP PO ×3 (08:15→17:05)
[2017-04-06] MEDS: ESCITALOPRAM 10 MG TAB PO (08:15)
[2017-04-06] MEDS: DOCUSATE SODIUM 100 MG CAP PO ×2 (08:15→20:54)
[2017-04-06] MEDS: METOPROLOL 25 MG TAB PO ×2 (08:16→20:54)
[2017-04-06] MEDS: CEFTRIAXONE 2 GM/50 ML (PMX) 50 ML IVPB (11:33)
[2017-04-07] MEDS: ALBUTEROL/IPRATROPIUM (NEB) 3 ML AMP HHN ×6 (01:11→20:12)
[2017-04-07] MEDS: HYDROmorphONE 2 MG/ML SYG IV ×4 (02:26→20:07)
[2017-04-07] MEDS: PROMETHAZINE/CODEINE 5ML CUP PO ×2 (05:42→11:46)
[2017-04-07] MEDS: LEVOTHYROXINE 75 MCG TAB PO (06:14)
[2017-04-07] MEDS: PANTOPRAZOLE (EC) 40 MG TAB PO (06:14)
[2017-04-07] MEDS: DRONABINOL 2.5 MG CAP PO ×3 (06:15→17:20)
[2017-04-07] MEDS: ESCITALOPRAM 10 MG TAB PO (08:14)
[2017-04-07] MEDS: GABAPENTIN 100 MG CAP NGT ×3 (08:15→21:23)
[2017-04-07] MEDS: METOPROLOL 25 MG TAB PO ×2 (08:15→21:25)
[2017-04-07] MEDS: morphine (ER) 15 MG TAB PO ×2 (08:15→21:24)
[2017-04-07] MEDS: DOCUSATE SODIUM 100 MG CAP PO ×2 (08:15→21:24)
[2017-04-07] MEDS: CEFTRIAXONE 2 GM/50 ML (PMX) 50 ML IVPB (11:37)
[2017-04-07] MEDS: HYDROCODONE/HOMATROPINE 5ML CUP PO (11:46)
[2017-04-07] MEDS: FLUTICASONE 0.05% 16 GM NAS SPRAY NASAL (21:00)
[2017-04-08] MEDS: FLUTICASONE 0.05% 16 GM NAS SPRAY NASAL ×2 (00:45→20:29)
[2017-04-08] MEDS: HYDROmorphONE 2 MG/ML SYG IV ×6 (00:46→20:31)
[2017-04-08] MEDS: ALBUTEROL/IPRATROPIUM (NEB) 3 ML AMP HHN ×6 (01:00→20:42)
[2017-04-08] MEDS: PANTOPRAZOLE (EC) 40 MG TAB PO (05:49)
[2017-04-08] MEDS: LEVOTHYROXINE 75 MCG TAB PO (05:50)
[2017-04-08 07:45] LABS: ADD MAN DIFF? NO
[2017-04-08 07:48] LABS: WHITE BLOOD COUNT 5.3 10^3/ul (4.8-10.8)
[2017-04-08 07:48] LABS: BASOPHILS % 0.8 % (0.0-2.0); EOSINOPHILS # 0.1 10^3/ul (0.0-0.5); EOSINOPHILS % 2.7 % (0.0-7.0); HEMATOCRIT 30.4 % (42.0-52.0); HEMOGLOBIN 9.6 g/dl (14.0-18.0); LYMPHOCYTES # 0.8 10^3/ul (0.8-2.9); MEAN CORPUSCULAR HEMOGLOBIN 32.1 pg (29.0-33.0); MEAN CORPUSCULAR HGB CONC 31.6 g/dl (32.0-37.0); MEAN CORPUSCULAR VOLUME 101.7 fl (82.0-101.0); MEAN PLATELET VOLUME 10.7 fl (7.4-10.4); MONOCYTE # 0.4 10^3/ul (0.3-0.9); MONOCYTES % 8.2 % (0.0-11.0); NEUTROPHIL # 3.9 10^3/ul (1.6-7.5); NEUTROPHILS % 72.9 % (39.0-77.0); PLATELET COUNT 192 10^3/UL (140-415); RED BLOOD COUNT 2.99 10^6/ul (4.70-6.10); RED CELL DISTRIBUTION WIDTH 13.5 % (11.5-14.5)
[2017-04-08 08:01] LABS: ANION GAP 11 (8-16); BLOOD UREA NITROGEN 10 mg/dl (7-20); CARBON DIOXIDE 35 mmol/L (21-31); CHLORIDE 97 mmol/L (97-110); CREATININE 0.92 mg/dl (0.61-1.24); GLUCOSE 107 mg/dl (70-220); POTASSIUM 4.1 mmol/L (3.5-5.1); SODIUM 139 mmol/L (135-144)
[2017-04-08] MEDS: GABAPENTIN 100 MG CAP NGT ×3 (08:30→20:30)
[2017-04-08] MEDS: morphine (ER) 15 MG TAB PO ×2 (08:30→20:30)
[2017-04-08] MEDS: DOCUSATE SODIUM 100 MG CAP PO ×2 (08:31→20:30)
[2017-04-08] MEDS: DRONABINOL 2.5 MG CAP PO ×3 (08:31→17:08)
[2017-04-08] MEDS: ESCITALOPRAM 10 MG TAB PO (08:31)
[2017-04-08] MEDS: METOPROLOL 25 MG TAB PO ×2 (08:32→20:30)
[2017-04-08] MEDS: CEFTRIAXONE 2 GM/50 ML (PMX) 50 ML IVPB (11:22)
[2017-04-08] MEDS: HYDROCODONE/HOMATROPINE 5ML CUP PO (17:54)
[2017-04-08] MEDS: GUAIFENESIN 20 MG/ML 5ML CUP PO (22:32)
[2017-04-09] MEDS: HYDROmorphONE 2 MG/ML SYG IV ×5 (00:27→20:24)
[2017-04-09] MEDS: ALBUTEROL/IPRATROPIUM (NEB) 3 ML AMP HHN ×6 (01:14→20:07)
[2017-04-09] MEDS: PANTOPRAZOLE (EC) 40 MG TAB PO (06:24)
[2017-04-09] MEDS: LEVOTHYROXINE 75 MCG TAB PO (06:24)
[2017-04-09] MEDS: morphine (ER) 15 MG TAB PO ×2 (08:44→20:23)
[2017-04-09] MEDS: ESCITALOPRAM 10 MG TAB PO (08:44)
[2017-04-09] MEDS: DRONABINOL 2.5 MG CAP PO ×3 (08:44→17:11)
[2017-04-09] MEDS: GABAPENTIN 100 MG CAP NGT ×3 (08:45→20:22)
[2017-04-09] MEDS: METOPROLOL 25 MG TAB PO ×2 (08:45→20:23)
[2017-04-09] MEDS: DOCUSATE SODIUM 100 MG CAP PO ×2 (08:45→20:22)
[2017-04-09] MEDS: CEFTRIAXONE 2 GM/50 ML (PMX) 50 ML IVPB (12:03)
[2017-04-09] MEDS: GUAIFENESIN 20 MG/ML 5ML CUP PO (17:15)
[2017-04-09] MEDS: FLUTICASONE 0.05% 16 GM NAS SPRAY NASAL (20:22)
[2017-04-10] MEDS: GUAIFENESIN 20 MG/ML 5ML CUP PO ×2 (00:32→12:07)
[2017-04-10] MEDS: HYDROmorphONE 2 MG/ML SYG IV ×6 (00:32→21:22)
[2017-04-10] MEDS: ALBUTEROL/IPRATROPIUM (NEB) 3 ML AMP HHN ×6 (00:46→21:42)
[2017-04-10] MEDS: PANTOPRAZOLE (EC) 40 MG TAB PO (06:19)
[2017-04-10] MEDS: LEVOTHYROXINE 75 MCG TAB PO (06:20)
[2017-04-10 07:45] LABS: ADD MAN DIFF? NO
[2017-04-10 07:51] LABS: WHITE BLOOD COUNT 4.9 10^3/ul (4.8-10.8)
[2017-04-10 07:51] LABS: BASOPHILS % 0.8 % (0.0-2.0); EOSINOPHILS # 0.2 10^3/ul (0.0-0.5); EOSINOPHILS % 3.3 % (0.0-7.0); HEMOGLOBIN 9.5 g/dl (14.0-18.0); LYMPHOCYTES # 0.7 10^3/ul (0.8-2.9); LYMPHOCYTES % 14.4 % (15.0-51.0); MEAN CORPUSCULAR HEMOGLOBIN 31.8 pg (29.0-33.0); MEAN CORPUSCULAR HGB CONC 30.6 g/dl (32.0-37.0); MEAN CORPUSCULAR VOLUME 103.7 fl (82.0-101.0); MEAN PLATELET VOLUME 10.8 fl (7.4-10.4); MONOCYTE # 0.4 10^3/ul (0.3-0.9); MONOCYTES % 8.3 % (0.0-11.0); NEUTROPHIL # 3.6 10^3/ul (1.6-7.5); NEUTROPHILS % 72.6 % (39.0-77.0); PLATELET COUNT 173 10^3/UL (140-415); RED BLOOD COUNT 2.99 10^6/ul (4.70-6.10); RED CELL DISTRIBUTION WIDTH 13.3 % (11.5-14.5)
[2017-04-10 08:15] LABS: ANION GAP 12 (8-16); BLOOD UREA NITROGEN 10 mg/dl (7-20); CALCIUM 8.9 mg/dl (8.4-10.2); CARBON DIOXIDE 36 mmol/L (21-31); CHLORIDE 96 mmol/L (97-110); CREATININE 0.99 mg/dl (0.61-1.24); GLUCOSE 85 mg/dl (70-220); POTASSIUM 4.2 mmol/L (3.5-5.1); SODIUM 140 mmol/L (135-144)
[2017-04-10] MEDS: METOPROLOL 25 MG TAB PO ×2 (08:31→21:26)
[2017-04-10] MEDS: ESCITALOPRAM 10 MG TAB PO (08:31)
[2017-04-10] MEDS: GABAPENTIN 100 MG CAP NGT ×3 (08:31→21:26)
[2017-04-10] MEDS: DRONABINOL 2.5 MG CAP PO ×3 (08:31→17:47)
[2017-04-10] MEDS: DOCUSATE SODIUM 100 MG CAP PO ×2 (08:31→21:18)
[2017-04-10] MEDS: morphine (ER) 15 MG TAB PO ×2 (08:32→22:30)
[2017-04-10] MEDS: CEFTRIAXONE 2 GM/50 ML (PMX) 50 ML IVPB (11:42)
[2017-04-10] MEDS: FLUTICASONE 0.05% 16 GM NAS SPRAY NASAL (21:25)
[2017-04-11] MEDS: HYDROmorphONE 2 MG/ML SYG IV ×7 (01:09→21:42)
[2017-04-11] MEDS: GUAIFENESIN 20 MG/ML 5ML CUP PO ×2 (01:14→08:12)
[2017-04-11] MEDS: ALBUTEROL/IPRATROPIUM (NEB) 3 ML AMP HHN ×6 (01:18→20:20)
[2017-04-11] MEDS: LEVOTHYROXINE 75 MCG TAB PO (06:35)
[2017-04-11] MEDS: PANTOPRAZOLE (EC) 40 MG TAB PO (06:35)
[2017-04-11] MEDS: METOPROLOL 25 MG TAB PO ×3 (08:11→21:03)
[2017-04-11] MEDS: DRONABINOL 2.5 MG CAP PO ×3 (08:12→17:13)
[2017-04-11] MEDS: ESCITALOPRAM 10 MG TAB PO (08:12)
[2017-04-11] MEDS: morphine (ER) 15 MG TAB PO ×2 (08:12→20:59)
[2017-04-11] MEDS: FUROSEMIDE 20 MG INJ IV (08:12)
[2017-04-11] MEDS: DOCUSATE SODIUM 100 MG CAP PO ×2 (08:12→20:58)
[2017-04-11] MEDS: GABAPENTIN 100 MG CAP NGT ×3 (08:12→20:58)
[2017-04-11 08:54] LABS: ANION GAP 14 (8-16); BLOOD UREA NITROGEN 12 mg/dl (7-20); CALCIUM 9.5 mg/dl (8.4-10.2); CARBON DIOXIDE 33 mmol/L (21-31); CHLORIDE 97 mmol/L (97-110); GLUCOSE 97 mg/dl (70-220); SODIUM 140 mmol/L (135-144)
[2017-04-11] MEDS: CEFTRIAXONE 2 GM/50 ML (PMX) 50 ML IVPB (11:31)
[2017-04-11] MEDS: FLUTICASONE 0.05% 16 GM NAS SPRAY NASAL (20:57)
[2017-04-12] MEDS: EPOETIN 10000 UNITS/ML VIAL (ONCOLOGY) SC (00:19)
[2017-04-12] MEDS: ALBUTEROL/IPRATROPIUM (NEB) 3 ML AMP HHN ×6 (00:46→20:40)
[2017-04-12] MEDS: LEVOTHYROXINE 75 MCG TAB PO (06:40)
[2017-04-12] MEDS: PANTOPRAZOLE (EC) 40 MG TAB PO (06:40)
[2017-04-12] MEDS: HYDROmorphONE 2 MG/ML SYG IV ×5 (07:57→21:41)
[2017-04-12] MEDS: DRONABINOL 2.5 MG CAP PO ×3 (07:57→17:06)
[2017-04-12] MEDS: METOPROLOL 25 MG TAB PO ×2 (09:00→20:27)
[2017-04-12 09:11] LABS: ADD MAN DIFF? NO
[2017-04-12] MEDS: ESCITALOPRAM 10 MG TAB PO (09:17)
[2017-04-12] MEDS: DOCUSATE SODIUM 100 MG CAP PO ×2 (09:17→20:27)
[2017-04-12] MEDS: GABAPENTIN 100 MG CAP NGT ×3 (09:17→20:27)
[2017-04-12] MEDS: morphine (ER) 15 MG TAB PO ×2 (09:17→20:28)
[2017-04-12] MEDS: FUROSEMIDE 20 MG INJ IV (09:21)
[2017-04-12] MEDS: GUAIFENESIN 20 MG/ML 5ML CUP PO (09:21)
[2017-04-12 09:42] LABS: ANION GAP 10 (8-16); BLOOD UREA NITROGEN 11 mg/dl (7-20); CALCIUM 9.3 mg/dl (8.4-10.2); CARBON DIOXIDE 36 mmol/L (21-31); CHLORIDE 98 mmol/L (97-110); CREATININE 0.89 mg/dl (0.61-1.24); GLUCOSE 107 mg/dl (70-220); SODIUM 140 mmol/L (135-144)
[2017-04-12 09:43] LABS: WHITE BLOOD COUNT 5.9 10^3/ul (4.8-10.8)
[2017-04-12 09:43] LABS: BASOPHILS % 0.5 % (0.0-2.0); EOSINOPHILS # 0.1 10^3/ul (0.0-0.5); HEMATOCRIT 29.3 % (42.0-52.0); HEMOGLOBIN 9.1 g/dl (14.0-18.0); LYMPHOCYTES # 0.6 10^3/ul (0.8-2.9); LYMPHOCYTES % 10.6 % (15.0-51.0); MEAN CORPUSCULAR HEMOGLOBIN 31.6 pg (29.0-33.0); MEAN CORPUSCULAR HGB CONC 31.1 g/dl (32.0-37.0); MEAN CORPUSCULAR VOLUME 101.7 fl (82.0-101.0); MONOCYTE # 0.4 10^3/ul (0.3-0.9); MONOCYTES % 6.2 % (0.0-11.0); NEUTROPHIL # 4.8 10^3/ul (1.6-7.5); NEUTROPHILS % 80.4 % (39.0-77.0); PLATELET COUNT 173 10^3/UL (140-415); RED BLOOD COUNT 2.88 10^6/ul (4.70-6.10); RED CELL DISTRIBUTION WIDTH 13.6 % (11.5-14.5)
[2017-04-12] MEDS: CEFTRIAXONE 2 GM/50 ML (PMX) 50 ML IVPB (11:46)
[2017-04-12] MEDS: HYDROCODONE/HOMATROPINE 5ML CUP PO (17:06)
[2017-04-12] MEDS: FLUTICASONE 0.05% 16 GM NAS SPRAY NASAL (20:28)
[2017-04-13] MEDS: ALBUTEROL/IPRATROPIUM (NEB) 3 ML AMP HHN ×7 (00:21→21:27)
[2017-04-13] MEDS: HYDROmorphONE 2 MG/ML SYG IV ×5 (00:55→18:29)
[2017-04-13] MEDS: GUAIFENESIN 20 MG/ML 5ML CUP PO (00:55)
[2017-04-13] MEDS: HYDROCODONE/HOMATROPINE 5ML CUP PO ×2 (03:38→09:27)
[2017-04-13] MEDS: PANTOPRAZOLE (EC) 40 MG TAB PO (05:18)
[2017-04-13] MEDS: DRONABINOL 2.5 MG CAP PO ×3 (07:06→17:20)
[2017-04-13] MEDS: LEVOTHYROXINE 75 MCG TAB PO (07:06)
[2017-04-13] MEDS: METOPROLOL 25 MG TAB PO ×2 (08:12→20:36)
[2017-04-13 08:44] LABS: ADD MAN DIFF? NO
[2017-04-13 08:52] LABS: WHITE BLOOD COUNT 4.3 10^3/ul (4.8-10.8)
[2017-04-13 08:52] LABS: BASOPHILS % 0.7 % (0.0-2.0); EOSINOPHILS # 0.1 10^3/ul (0.0-0.5); HEMATOCRIT 28.5 % (42.0-52.0); LYMPHOCYTES # 0.9 10^3/ul (0.8-2.9); LYMPHOCYTES % 20.2 % (15.0-51.0); MEAN CORPUSCULAR HGB CONC 31.6 g/dl (32.0-37.0); MEAN CORPUSCULAR VOLUME 101.4 fl (82.0-101.0); MEAN PLATELET VOLUME 11.4 fl (7.4-10.4); MONOCYTE # 0.5 10^3/ul (0.3-0.9); MONOCYTES % 10.4 % (0.0-11.0); NEUTROPHIL # 2.8 10^3/ul (1.6-7.5); NEUTROPHILS % 65.2 % (39.0-77.0); PLATELET COUNT 140 10^3/UL (140-415); RED BLOOD COUNT 2.81 10^6/ul (4.70-6.10); RED CELL DISTRIBUTION WIDTH 13.6 % (11.5-14.5)
[2017-04-13] MEDS: ESCITALOPRAM 10 MG TAB PO (09:23)
[2017-04-13] MEDS: DOCUSATE SODIUM 100 MG CAP PO ×2 (09:23→20:37)
[2017-04-13] MEDS: GABAPENTIN 100 MG CAP NGT ×3 (09:23→20:35)
[2017-04-13] MEDS: FUROSEMIDE 20 MG INJ IV (09:24)
[2017-04-13] MEDS: morphine (ER) 15 MG TAB PO ×2 (09:24→20:35)
[2017-04-13 09:27] LABS: ANION GAP 13 (8-16); BLOOD UREA NITROGEN 14 mg/dl (7-20); CALCIUM 8.7 mg/dl (8.4-10.2); CARBON DIOXIDE 33 mmol/L (21-31); CHLORIDE 96 mmol/L (97-110); CREATININE 0.92 mg/dl (0.61-1.24); GLUCOSE 89 mg/dl (70-220); SODIUM 138 mmol/L (135-144)
[2017-04-13] MEDS: CEFTRIAXONE 2 GM/50 ML (PMX) 50 ML IVPB (11:13)
[2017-04-13] MEDS: PROMETHAZINE/CODEINE 5ML CUP PO (12:04)
[2017-04-13] MEDS: TOBRAMYCIN 0.3% 5 ML OPH LEFT EYE (18:29)
[2017-04-13] MEDS: ZOLPIDEM 5 MG TAB PO (20:36)
[2017-04-13] MEDS: FLUTICASONE 0.05% 16 GM NAS SPRAY NASAL (20:38)
[2017-04-14] MEDS: GUAIFENESIN/DM (SR) TAB PO ×3 (00:40→20:49)
[2017-04-14] MEDS: ALBUTEROL/IPRATROPIUM (NEB) 3 ML AMP HHN ×6 (01:38→20:19)
[2017-04-14] MEDS: TOBRAMYCIN 0.3% 5 ML OPH LEFT EYE ×4 (05:33→18:04)
[2017-04-14] MEDS: PANTOPRAZOLE (EC) 40 MG TAB PO (05:33)
[2017-04-14] MEDS: LEVOTHYROXINE 75 MCG TAB PO (05:34)
[2017-04-14] MEDS: DRONABINOL 2.5 MG CAP PO ×3 (08:00→18:03)
[2017-04-14] MEDS: ESCITALOPRAM 10 MG TAB PO (08:59)
[2017-04-14] MEDS: GABAPENTIN 100 MG CAP NGT ×3 (08:59→20:50)
[2017-04-14] MEDS: FUROSEMIDE 20 MG INJ IV (08:59)
[2017-04-14] MEDS: DOCUSATE SODIUM 100 MG CAP PO ×2 (08:59→20:52)
[2017-04-14] MEDS: METOPROLOL 25 MG TAB PO ×2 (09:00→20:51)
[2017-04-14] MEDS: morphine (ER) 15 MG TAB PO ×2 (09:01→20:50)
[2017-04-14] MEDS: HYDROmorphONE 2 MG/ML SYG IV ×2 (11:39→15:58)
[2017-04-14] MEDS: CEFTRIAXONE 2 GM/50 ML (PMX) 50 ML IVPB (11:40)
[2017-04-14] MEDS: EPOETIN 10000 UNITS/ML VIAL (ONCOLOGY) SC (15:12)
[2017-04-14] MEDS: GUAIFENESIN 20 MG/ML 5ML CUP PO (16:01)
[2017-04-14] MEDS: FLUTICASONE 0.05% 16 GM NAS SPRAY NASAL (20:49)
[2017-04-15] MEDS: ALBUTEROL/IPRATROPIUM (NEB) 3 ML AMP HHN ×6 (00:08→20:28)
[2017-04-15] MEDS: TOBRAMYCIN 0.3% 5 ML OPH LEFT EYE ×4 (01:43→17:41)
[2017-04-15] MEDS: GUAIFENESIN 20 MG/ML 5ML CUP PO ×2 (01:49→05:52)
[2017-04-15] MEDS: PANTOPRAZOLE (EC) 40 MG TAB PO (05:44)
[2017-04-15] MEDS: LEVOTHYROXINE 75 MCG TAB PO (06:16)
[2017-04-15] MEDS: DRONABINOL 2.5 MG CAP PO ×3 (08:34→17:41)
[2017-04-15] MEDS: FUROSEMIDE 20 MG INJ IV (08:34)
[2017-04-15] MEDS: METOPROLOL 25 MG TAB PO ×2 (08:35→21:00)
[2017-04-15] MEDS: DOCUSATE SODIUM 100 MG CAP PO ×2 (08:35→21:40)
[2017-04-15] MEDS: GABAPENTIN 100 MG CAP NGT ×3 (08:35→21:40)
[2017-04-15] MEDS: ESCITALOPRAM 10 MG TAB PO (08:35)
[2017-04-15] MEDS: morphine (ER) 15 MG TAB PO ×2 (08:36→19:55)
[2017-04-15] MEDS: GUAIFENESIN/DM (SR) TAB PO ×2 (08:36→19:54)
[2017-04-15] MEDS: FLUTICASONE 0.05% 16 GM NAS SPRAY NASAL (21:40)
[2017-04-16] MEDS: TOBRAMYCIN 0.3% 5 ML OPH LEFT EYE ×4 (00:12→19:09)
[2017-04-16] MEDS: GUAIFENESIN 20 MG/ML 5ML CUP PO (00:29)
[2017-04-16] MEDS: HYDROmorphONE 2 MG/ML SYG IV ×4 (00:30→16:21)
[2017-04-16] MEDS: ALBUTEROL/IPRATROPIUM (NEB) 3 ML AMP HHN ×6 (00:57→20:46)
[2017-04-16] MEDS: PANTOPRAZOLE (EC) 40 MG TAB PO (06:06)
[2017-04-16] MEDS: LEVOTHYROXINE 75 MCG TAB PO (06:06)
[2017-04-16] MEDS: DRONABINOL 2.5 MG CAP PO ×3 (08:56→17:28)
[2017-04-16] MEDS: DOCUSATE SODIUM 100 MG CAP PO ×2 (08:58→20:22)
[2017-04-16] MEDS: GABAPENTIN 100 MG CAP NGT ×3 (08:58→20:23)
[2017-04-16] MEDS: FUROSEMIDE 20 MG INJ IV (08:58)
[2017-04-16] MEDS: ESCITALOPRAM 10 MG TAB PO (08:59)
[2017-04-16] MEDS: morphine (ER) 15 MG TAB PO ×2 (08:59→20:23)
[2017-04-16] MEDS: GUAIFENESIN/DM (SR) TAB PO ×2 (08:59→20:22)
[2017-04-16] MEDS: METOPROLOL 25 MG TAB PO ×2 (09:00→20:23)
[2017-04-16] MEDS: FLUTICASONE 0.05% 16 GM NAS SPRAY NASAL (20:24)
[2017-04-17] MEDS: TOBRAMYCIN 0.3% 5 ML OPH LEFT EYE ×4 (00:27→18:03)
[2017-04-17] MEDS: ALBUTEROL/IPRATROPIUM (NEB) 3 ML AMP HHN ×6 (01:14→19:41)
[2017-04-17] MEDS: HYDROmorphONE 2 MG/ML SYG IV ×5 (01:24→18:15)
[2017-04-17] MEDS: GUAIFENESIN 20 MG/ML 5ML CUP PO (01:27)
[2017-04-17] MEDS: PANTOPRAZOLE (EC) 40 MG TAB PO (05:21)
[2017-04-17] MEDS: LEVOTHYROXINE 75 MCG TAB PO (06:41)
[2017-04-17] MEDS: DRONABINOL 2.5 MG CAP PO ×3 (08:48→17:23)
[2017-04-17] MEDS: FUROSEMIDE 20 MG INJ IV ×2 (08:48→17:22)
[2017-04-17] MEDS: ESCITALOPRAM 10 MG TAB PO (08:49)
[2017-04-17] MEDS: GABAPENTIN 100 MG CAP NGT ×3 (08:49→20:59)
[2017-04-17] MEDS: DOCUSATE SODIUM 100 MG CAP PO ×2 (08:49→20:59)
[2017-04-17] MEDS: morphine (ER) 15 MG TAB PO ×2 (08:50→20:59)
[2017-04-17] MEDS: GUAIFENESIN/DM (SR) TAB PO ×2 (08:50→20:59)
[2017-04-17] MEDS: METOPROLOL 25 MG TAB PO ×2 (08:50→20:58)
[2017-04-17] MEDS: FLUTICASONE 0.05% 16 GM NAS SPRAY NASAL (21:00)
[2017-04-18] MEDS: TOBRAMYCIN 0.3% 5 ML OPH LEFT EYE ×3 (00:24→12:51)
[2017-04-18] MEDS: HYDROmorphONE 2 MG/ML SYG IV ×5 (00:26→12:51)
[2017-04-18] MEDS: GUAIFENESIN 20 MG/ML 5ML CUP PO (00:26)
[2017-04-18] MEDS: ALBUTEROL/IPRATROPIUM (NEB) 3 ML AMP HHN ×4 (02:27→13:13)
[2017-04-18] MEDS: PANTOPRAZOLE (EC) 40 MG TAB PO (06:22)
[2017-04-18] MEDS: LEVOTHYROXINE 75 MCG TAB PO (06:22)
[2017-04-18] MEDS: HYDROCODONE/HOMATROPINE 5ML CUP PO (06:26)
[2017-04-18] MEDS: GABAPENTIN 100 MG CAP NGT ×2 (08:37→12:51)
[2017-04-18] MEDS: morphine (ER) 15 MG TAB PO (08:37)
[2017-04-18] MEDS: ESCITALOPRAM 10 MG TAB PO (08:37)
[2017-04-18] MEDS: FUROSEMIDE 20 MG INJ IV (08:37)
[2017-04-18] MEDS: DRONABINOL 2.5 MG CAP PO ×2 (08:37→12:51)
[2017-04-18] MEDS: GUAIFENESIN/DM (SR) TAB PO (08:37)
[2017-04-18] MEDS: DOCUSATE SODIUM 100 MG CAP PO (08:37)
[2017-04-18] MEDS: METOPROLOL 25 MG TAB PO (08:38)
== END 2017-04-18 15:40 | disposition home health service (06) | DRG 871 ==
LOC: ICU 03-17 01:21 → MS4 04-02 06:57 → E/R 21:58 → MS4 03-17 18:41 → MS2 04-13 22:01
PROC: 06HM33Z Insertion of Infusion Device into Right Femoral Vein, Percutaneous Approach (ICD-10-PCS; principal; 2017-03-17)
PROC: 30233N1 Transfusion of Nonautologous Red Blood Cells into Peripheral Vein, Percutaneous Approach (ICD-10-PCS; 2017-03-31)
DX: A41.9 Sepsis, unspecified organism (principal); J18.8 Other pneumonia, unspecified organism; J96.91 Respiratory failure, unspecified with hypoxia; R65.21 Severe sepsis with septic shock; I50.33 Acute on chronic diastolic (congestive) heart failure; N17.9 Acute kidney failure, unspecified; J18.9 Pneumonia, unspecified organism; D69.6 Thrombocytopenia, unspecified; I95.9 Hypotension, unspecified; D61.818 Other pancytopenia; J44.0 Chronic obstructive pulmonary disease with (acute) lower respiratory infection; I82.622 Acute embolism and thrombosis of deep veins of left upper extremity; J98.11 Atelectasis; C34.91 Malignant neoplasm of unspecified part of right bronchus or lung; I11.0 Hypertensive heart disease with heart failure; E83.42 Hypomagnesemia; E66.9 Obesity, unspecified; Z68.37 Body mass index [BMI] 37.0-37.9, adult; I25.10 Atherosclerotic heart disease of native coronary artery without angina pectoris; E78.5 Hyperlipidemia, unspecified; E03.9 Hypothyroidism, unspecified; I48.0 Paroxysmal atrial fibrillation; R07.9 Chest pain, unspecified; E87.6 Hypokalemia; B95.7 Other staphylococcus as the cause of diseases classified elsewhere; B96.89 Other specified bacterial agents as the cause of diseases classified elsewhere; Z87.891 Personal history of nicotine dependence; Z99.81 Dependence on supplemental oxygen; Z79.01 Long term (current) use of anticoagulants
CPT/HCPCS: 36415; 36430; 71045; 71250; 80048; 80053; 80061; 81001; 81003; 82550; 82553; 83605; 83735; 83880; 84443; 84484; 85025; 85610; 85730; 86606; 86850; 86900; 86901; 86920; 87040; 87070; 87081; 87086; 87400; 93005; 93306; 93970; 93971; 94640; 94660; 94664; 96365; 96366; 96375; 96376; 97110; 97116; 97530; 99291-25; J0885; J1940

== ENCOUNTER 2017-05-01 22:55 | Inpatient (IN) | payer MEDICAID ==
[2017-05-02] MEDS: SODIUM CHLORIDE 0.9% 1L BAG IV*
[2017-05-02 00:10] LABS: ADD MAN DIFF? NO
[2017-05-02 00:13] LABS: BASOPHILS % 0.7 % (0.0-2.0); EOSINOPHILS # 0.1 10^3/ul (0.0-0.5); EOSINOPHILS % 2.2 % (0.0-7.0); HEMATOCRIT 36.5 % (42.0-52.0); HEMOGLOBIN 11.9 g/dl (14.0-18.0); LYMPHOCYTES # 1.3 10^3/ul (0.8-2.9); MEAN CORPUSCULAR HEMOGLOBIN 31.3 pg (29.0-33.0); MEAN CORPUSCULAR HGB CONC 32.6 g/dl (32.0-37.0); MEAN CORPUSCULAR VOLUME 96.1 fl (82.0-101.0); MEAN PLATELET VOLUME 11.4 fl (7.4-10.4); MONOCYTE # 0.6 10^3/ul (0.3-0.9); MONOCYTES % 10.7 % (0.0-11.0); NEUTROPHIL # 3.7 10^3/ul (1.6-7.5); NEUTROPHILS % 64.2 % (39.0-77.0); PLATELET COUNT 196 10^3/UL (140-415); RED CELL DISTRIBUTION WIDTH 14.2 % (11.5-14.5)
[2017-05-02 00:13] LABS: WHITE BLOOD COUNT 5.8 10^3/ul (4.8-10.8)
[2017-05-02 00:29] LABS: LACTIC ACID 1.3 mmol/L (0.5-2.0)
[2017-05-02 00:31] LABS: ALANINE AMINOTRANSFERASE 22 IU/L (13-69); ALBUMIN 3.6 g/dl (3.3-4.9); ALBUMIN/GLOBULIN RATIO 1.02; ALKALINE PHOSPHATASE 90 IU/L (42-121); ANION GAP 12 (8-16); ASPARTATE AMINO TRANSFERASE 25 IU/L (15-46); BILIRUBIN,INDIRECT 0.2 mg/dl (0-1.1); BILIRUBIN,TOTAL 0.2 mg/dl (0.2-1.3); BLOOD UREA NITROGEN 13 mg/dl (7-20); CARBON DIOXIDE 36 mmol/L (21-31); CHLORIDE 95 mmol/L (97-110); CREATININE 1.42 mg/dl (0.61-1.24); GLUCOSE 102 mg/dl (70-220); POTASSIUM 3.9 mmol/L (3.5-5.1); SODIUM 139 mmol/L (135-144); TOTAL PROTEIN 7.1 g/dl (6.1-8.1)
[2017-05-02 00:45] LABS: TROPONIN-I < 0.012 ng/ml (0.00-0.12)
[2017-05-02 00:58] LABS: INR 1.11; PROTIME 14.5 Sec (11.9-14.9); PT RATIO 1.1
[2017-05-02 01:07] LABS: PARTIAL THROMBOPLASTIN TIME 33.6 Sec (25.0-35.0)
[2017-05-02] MEDS ORDERED: ONDANSETRON 4 MG INJ (01:22)
[2017-05-02] MEDS ORDERED: morphine 4 MG/ML VIAL (01:23)
[2017-05-02] MEDS: morphine 4 MG/ML VIAL IV (01:29)
[2017-05-02] MEDS: ONDANSETRON 4 MG INJ IV (01:29)
[2017-05-02] MEDS: DIPHENHYDRAMINE 50 MG INJ IV ×2 (01:38→03:27)
[2017-05-02] MEDS ORDERED: ACETAMINOPHEN 325 MG TAB PO (03:00)
[2017-05-02] MEDS: HYDROmorphONE 2 MG TAB PO ×5 (03:28→22:19)
[2017-05-02 04:00] LABS: LACTIC ACID 1.2 mmol/L (0.5-2.0)
[2017-05-02 05:13] LABS: LACTIC ACID 0.5 mmol/L (0.5-2.0)
[2017-05-02] MEDS: LEVOTHYROXINE 75 MCG TAB PO (06:03)
[2017-05-02] MEDS: PANTOPRAZOLE (EC) 40 MG TAB PO (06:03)
[2017-05-02] MEDS: LIDOCAINE 1% (MPF) 5 ML VIAL (09:29)
[2017-05-02] MEDS: ESCITALOPRAM 10 MG TAB PO (10:08)
[2017-05-02] MEDS: FUROSEMIDE 20 MG TAB PO (10:08)
[2017-05-02] MEDS: POTASSIUM CHLORIDE (SR) 20 MEQ TAB PO ×2 (10:08→20:42)
[2017-05-02] MEDS: SENNA TAB PO (10:08)
[2017-05-02] MEDS: DRONABINOL 2.5 MG CAP PO ×3 (10:10→17:37)
[2017-05-02 13:22] LABS: ADD UMIC NO; UR ASCORBIC ACID NEGATIVE (NEGATIVE); UR BILIRUBIN (Dip) NEGATIVE (NEGATIVE); UR BLOOD (Dip) NEGATIVE (NEGATIVE); UR CLARITY CLEAR (CLEAR); UR COLOR YELLOW (YELLOW); UR GLUCOSE (Dip) NEGATIVE (NEGATIVE); UR KETONES (Dip) NEGATIVE (NEGATIVE); UR LEUKOCYTE ESTERASE (Dip) NEGATIVE Leu/ul (NEGATIVE); UR NITRITE (Dip) NEGATIVE (NEGATIVE); UR SPECIFIC GRAVITY (Dip) 1.006 (1.003-1.030); UR TOTAL PROTEIN (Dip) NEGATIVE (NEGATIVE); UR UROBILINOGEN (Dip) NEGATIVE (NEGATIVE)
[2017-05-02] MEDS: ATORVASTATIN 20 MG TAB PO (20:42)
[2017-05-03] MEDS: HYDROmorphONE 2 MG TAB PO ×6 (01:13→20:26)
[2017-05-03 05:46] LABS: ADD MAN DIFF? NO
[2017-05-03 06:03] LABS: BASOPHIL # 0.1 10^3/ul (0.0-0.1); EOSINOPHILS # 0.1 10^3/ul (0.0-0.5); EOSINOPHILS % 2.5 % (0.0-7.0); HEMATOCRIT 35.8 % (42.0-52.0); HEMOGLOBIN 11.4 g/dl (14.0-18.0); LYMPHOCYTES # 1.1 10^3/ul (0.8-2.9); LYMPHOCYTES % 20.5 % (15.0-51.0); MEAN CORPUSCULAR HEMOGLOBIN 30.6 pg (29.0-33.0); MEAN CORPUSCULAR HGB CONC 31.8 g/dl (32.0-37.0); MEAN PLATELET VOLUME 10.8 fl (7.4-10.4); MONOCYTE # 0.5 10^3/ul (0.3-0.9); MONOCYTES % 8.8 % (0.0-11.0); NEUTROPHIL # 3.5 10^3/ul (1.6-7.5); PLATELET COUNT 139 10^3/UL (140-415); RED BLOOD COUNT 3.73 10^6/ul (4.70-6.10); RED CELL DISTRIBUTION WIDTH 14.3 % (11.5-14.5)
[2017-05-03 06:03] LABS: WHITE BLOOD COUNT 5.2 10^3/ul (4.8-10.8)
[2017-05-03 06:10] LABS: ANION GAP 10 (8-16); BLOOD UREA NITROGEN 11 mg/dl (7-20); CARBON DIOXIDE 34 mmol/L (21-31); CHLORIDE 99 mmol/L (97-110); CREATININE 1.04 mg/dl (0.61-1.24); GLUCOSE 92 mg/dl (70-220); POTASSIUM 4.1 mmol/L (3.5-5.1); SODIUM 139 mmol/L (135-144)
[2017-05-03] MEDS: LEVOTHYROXINE 75 MCG TAB PO (06:14)
[2017-05-03] MEDS: PANTOPRAZOLE (EC) 40 MG TAB PO (06:14)
[2017-05-03] MEDS: SENNA TAB PO (08:08)
[2017-05-03] MEDS: morphine (ER) 30 MG TAB PO ×2 (08:09→20:26)
[2017-05-03] MEDS: ESCITALOPRAM 10 MG TAB PO (08:09)
[2017-05-03] MEDS: FUROSEMIDE 20 MG TAB PO (08:09)
[2017-05-03] MEDS: POTASSIUM CHLORIDE (SR) 20 MEQ TAB PO ×2 (08:09→20:25)
[2017-05-03] MEDS: DRONABINOL 2.5 MG CAP PO ×3 (08:09→17:30)
[2017-05-03 12:22] LABS: TROPONIN-I < 0.012 ng/ml (0.00-0.12)
[2017-05-03 12:31] LABS: B-TYPE NATRIURETIC PEPTIDE 1880 PG/ML (0-125)
[2017-05-03 19:11] LABS: TROPONIN-I < 0.012 ng/ml (0.00-0.12)
[2017-05-03] MEDS: ATORVASTATIN 20 MG TAB PO (20:25)
[2017-05-03] MEDS: APIXABAN 5 MG TABLET PO (20:25)
[2017-05-04] MEDS: HYDROmorphONE 2 MG TAB PO ×8 (00:10→22:34)
[2017-05-04 06:11] LABS: ADD MAN DIFF? NO
[2017-05-04 06:20] LABS: BASOPHILS % 0.6 % (0.0-2.0); EOSINOPHILS # 0.2 10^3/ul (0.0-0.5); EOSINOPHILS % 3.6 % (0.0-7.0); HEMATOCRIT 35.4 % (42.0-52.0); HEMOGLOBIN 11.4 g/dl (14.0-18.0); LYMPHOCYTES % 21.9 % (15.0-51.0); MEAN CORPUSCULAR HEMOGLOBIN 30.5 pg (29.0-33.0); MEAN CORPUSCULAR HGB CONC 32.2 g/dl (32.0-37.0); MEAN CORPUSCULAR VOLUME 94.7 fl (82.0-101.0); MEAN PLATELET VOLUME 11.1 fl (7.4-10.4); MONOCYTE # 0.4 10^3/ul (0.3-0.9); MONOCYTES % 8.9 % (0.0-11.0); NEUTROPHIL # 3.1 10^3/ul (1.6-7.5); NEUTROPHILS % 64.8 % (39.0-77.0); PLATELET COUNT 133 10^3/UL (140-415); RED BLOOD COUNT 3.74 10^6/ul (4.70-6.10)
[2017-05-04 06:20] LABS: WHITE BLOOD COUNT 4.7 10^3/ul (4.8-10.8)
[2017-05-04] MEDS: LEVOTHYROXINE 75 MCG TAB PO (06:47)
[2017-05-04] MEDS: PANTOPRAZOLE (EC) 40 MG TAB PO (06:47)
[2017-05-04 07:17] LABS: ANION GAP 12 (8-16); BLOOD UREA NITROGEN 12 mg/dl (7-20); CALCIUM 8.9 mg/dl (8.4-10.2); CARBON DIOXIDE 33 mmol/L (21-31); CHLORIDE 99 mmol/L (97-110); CREATININE 0.96 mg/dl (0.61-1.24); GLUCOSE 94 mg/dl (70-220); POTASSIUM 4.3 mmol/L (3.5-5.1); SODIUM 140 mmol/L (135-144)
[2017-05-04] MEDS: ESCITALOPRAM 10 MG TAB PO (08:23)
[2017-05-04] MEDS: APIXABAN 5 MG TABLET PO ×2 (08:24→21:36)
[2017-05-04] MEDS: POTASSIUM CHLORIDE (SR) 20 MEQ TAB PO ×2 (08:24→21:36)
[2017-05-04] MEDS: FUROSEMIDE 20 MG TAB PO (08:25)
[2017-05-04] MEDS: SENNA TAB PO (08:25)
[2017-05-04] MEDS: morphine (ER) 30 MG TAB PO ×2 (08:25→21:36)
[2017-05-04] MEDS: DRONABINOL 2.5 MG CAP PO ×3 (08:26→18:20)
[2017-05-04] MEDS: ATORVASTATIN 20 MG TAB PO (21:36)
[2017-05-05] MEDS: HYDROmorphONE 2 MG TAB PO ×4 (01:29→13:53)
[2017-05-05] MEDS: PANTOPRAZOLE (EC) 40 MG TAB PO (05:26)
[2017-05-05 06:11] LABS: ADD MAN DIFF? NO
[2017-05-05] MEDS: LEVOTHYROXINE 75 MCG TAB PO (06:14)
[2017-05-05 06:28] LABS: BASOPHILS % 0.8 % (0.0-2.0); EOSINOPHILS # 0.2 10^3/ul (0.0-0.5); EOSINOPHILS % 3.3 % (0.0-7.0); HEMATOCRIT 35.7 % (42.0-52.0); HEMOGLOBIN 11.6 g/dl (14.0-18.0); LYMPHOCYTES % 18.6 % (15.0-51.0); MEAN CORPUSCULAR HEMOGLOBIN 30.9 pg (29.0-33.0); MEAN CORPUSCULAR HGB CONC 32.5 g/dl (32.0-37.0); MEAN CORPUSCULAR VOLUME 95.2 fl (82.0-101.0); MEAN PLATELET VOLUME 11.3 fl (7.4-10.4); MONOCYTE # 0.4 10^3/ul (0.3-0.9); MONOCYTES % 8.1 % (0.0-11.0); NEUTROPHIL # 3.6 10^3/ul (1.6-7.5); PLATELET COUNT 152 10^3/UL (140-415); RED BLOOD COUNT 3.75 10^6/ul (4.70-6.10)
[2017-05-05 06:28] LABS: WHITE BLOOD COUNT 5.2 10^3/ul (4.8-10.8)
[2017-05-05 07:06] LABS: ANION GAP 11 (8-16); BLOOD UREA NITROGEN 11 mg/dl (7-20); CALCIUM 9.1 mg/dl (8.4-10.2); CARBON DIOXIDE 36 mmol/L (21-31); CHLORIDE 97 mmol/L (97-110); CREATININE 1.02 mg/dl (0.61-1.24); GLUCOSE 95 mg/dl (70-220); POTASSIUM 4.1 mmol/L (3.5-5.1); SODIUM 140 mmol/L (135-144)
[2017-05-05] MEDS: FUROSEMIDE 20 MG TAB PO (08:09)
[2017-05-05] MEDS: morphine (ER) 30 MG TAB PO (08:09)
[2017-05-05] MEDS: SENNA TAB PO (08:10)
[2017-05-05] MEDS: DRONABINOL 2.5 MG CAP PO ×2 (08:10→11:54)
[2017-05-05] MEDS: APIXABAN 5 MG TABLET PO (08:10)
[2017-05-05] MEDS: ESCITALOPRAM 10 MG TAB PO (08:10)
[2017-05-05] MEDS: POTASSIUM CHLORIDE (SR) 20 MEQ TAB PO (08:10)
[2017-05-07 17:11] LABS: PROCALCITONIN <0.10 ng/mL (<0.10)
== END 2017-05-05 15:15 | disposition home health service (06) | DRG 180 ==
LOC: MS2 05-05 04:31 → E/R 22:55
PROC: 0W993ZZ Drainage of Right Pleural Cavity, Percutaneous Approach (ICD-10-PCS; principal; 2017-05-02)
DX: C34.90 Malignant neoplasm of unspecified part of unspecified bronchus or lung (principal); I50.33 Acute on chronic diastolic (congestive) heart failure; J91.0 Malignant pleural effusion; I95.9 Hypotension, unspecified; I11.0 Hypertensive heart disease with heart failure; J98.19 Other pulmonary collapse; Z99.81 Dependence on supplemental oxygen; D63.0 Anemia in neoplastic disease; I48.0 Paroxysmal atrial fibrillation; J44.9 Chronic obstructive pulmonary disease, unspecified; I25.10 Atherosclerotic heart disease of native coronary artery without angina pectoris; E78.5 Hyperlipidemia, unspecified; E03.9 Hypothyroidism, unspecified; Z86.718 Personal history of other venous thrombosis and embolism; E66.9 Obesity, unspecified; Z68.36 Body mass index [BMI] 36.0-36.9, adult; Z79.899 Other long term (current) drug therapy; Z87.891 Personal history of nicotine dependence
CPT/HCPCS: 36415; 71045; 76942; 80048; 80053; 81003; 83605; 83880; 84145; 84443; 84484; 85025; 85610; 85730; 87040; 87070; 87081; 87086; 87102; 87116; 88104; 88305; 93005; 96374; 96375; 99285-25

== ENCOUNTER 2017-05-11 17:18 | Inpatient (IN) | payer MEDICAID ==
[2017-05-11] MEDS: ONDANSETRON 4 MG INJ IV (23:00)
[2017-05-11] MEDS: SOD CHLORIDE 0.9% 500 ML IV (23:00)
[2017-05-11] MEDS: HYDROmorphONE 1 MG/ML SYG IV (23:00)
[2017-05-11 23:16] LABS: ADD MAN DIFF? NO
[2017-05-11 23:18] LABS: WHITE BLOOD COUNT 7.7 10^3/ul (4.8-10.8)
[2017-05-11 23:18] LABS: BASOPHIL # 0.1 10^3/ul (0.0-0.1); BASOPHILS % 0.7 % (0.0-2.0); EOSINOPHILS # 0.2 10^3/ul (0.0-0.5); EOSINOPHILS % 2.5 % (0.0-7.0); HEMATOCRIT 44.1 % (42.0-52.0); HEMOGLOBIN 13.8 g/dl (14.0-18.0); LYMPHOCYTES # 1.4 10^3/ul (0.8-2.9); LYMPHOCYTES % 17.9 % (15.0-51.0); MEAN CORPUSCULAR HEMOGLOBIN 29.9 pg (29.0-33.0); MEAN CORPUSCULAR HGB CONC 31.3 g/dl (32.0-37.0); MEAN CORPUSCULAR VOLUME 95.5 fl (82.0-101.0); MEAN PLATELET VOLUME 10.1 fl (7.4-10.4); MONOCYTE # 0.6 10^3/ul (0.3-0.9); NEUTROPHIL # 5.4 10^3/ul (1.6-7.5); NEUTROPHILS % 70.8 % (39.0-77.0); PLATELET COUNT 198 10^3/UL (140-415); RED BLOOD COUNT 4.62 10^6/ul (4.70-6.10); RED CELL DISTRIBUTION WIDTH 14.2 % (11.5-14.5)
[2017-05-11 23:32] LABS: INR 1.09; PROTIME 14.3 Sec (11.9-14.9); PT RATIO 1.1
[2017-05-11 23:33] LABS: PARTIAL THROMBOPLASTIN TIME 31.2 Sec (25.0-35.0)
[2017-05-11 23:34] LABS: ANION GAP 16 (8-16); BLOOD UREA NITROGEN 15 mg/dl (7-20); CALCIUM 9.7 mg/dl (8.4-10.2); CARBON DIOXIDE 36 mmol/L (21-31); CHLORIDE 94 mmol/L (97-110); CREATININE 1.08 mg/dl (0.61-1.24); GLUCOSE 105 mg/dl (70-220); POTASSIUM 3.7 mmol/L (3.5-5.1); SODIUM 142 mmol/L (135-144)
[2017-05-11 23:47] LABS: B-TYPE NATRIURETIC PEPTIDE 1910 PG/ML (0-125)
[2017-05-11 23:48] LABS: TROPONIN-I < 0.012 ng/ml (0.00-0.12)
[2017-05-12] MEDS: SOD CHLORIDE 0.9% 100 ML (00:11)
[2017-05-12] MEDS: IOHEXOL 300MG/ML 150 ML BTL (00:11)
[2017-05-12] MEDS: HYDROmorphONE 1 MG/ML SYG IV (00:57)
[2017-05-12] MEDS ORDERED: ONDANSETRON 4 MG INJ IV (01:00)
[2017-05-12] MEDS ORDERED: ACETAMINOPHEN 325 MG TAB PO ×2 (01:00→04:30)
[2017-05-12] MEDS: HYDROmorphONE 2 MG TAB PO ×2 (04:28→18:00)
[2017-05-12] MEDS ORDERED: SENNA TAB PO (04:30)
[2017-05-12] MEDS: PANTOPRAZOLE (EC) 40 MG TAB PO (06:17)
[2017-05-12] MEDS: LEVOTHYROXINE 75 MCG TAB PO (06:17)
[2017-05-12 07:43] LABS: TROPONIN-I < 0.012 ng/ml (0.00-0.12)
[2017-05-12] MEDS: DRONABINOL 2.5 MG CAP PO ×3 (08:39→17:57)
[2017-05-12] MEDS: ESCITALOPRAM 10 MG TAB PO (11:03)
[2017-05-12] MEDS: morphine (ER) 15 MG TAB PO ×2 (11:03→22:39)
[2017-05-12] MEDS: APIXABAN 5 MG TABLET PO ×2 (11:03→21:00)
[2017-05-12] MEDS: POTASSIUM CHLORIDE (SR) 20 MEQ TAB PO ×2 (11:03→22:39)
[2017-05-12] MEDS: FUROSEMIDE 20 MG TAB PO (11:04)
[2017-05-12 12:56] LABS: TROPONIN-I < 0.012 ng/ml (0.00-0.12)
[2017-05-12 19:34] LABS: TROPONIN-I < 0.012 ng/ml (0.00-0.12)
[2017-05-12] MEDS: ATORVASTATIN 20 MG TAB PO (22:39)
[2017-05-13 02:11] LABS: TROPONIN-I < 0.012 ng/ml (0.00-0.12)
[2017-05-13] MEDS: APIXABAN 5 MG TABLET PO ×3 (04:45→22:04)
[2017-05-13] MEDS: LEVOTHYROXINE 75 MCG TAB PO ×2 (05:55→06:03)
[2017-05-13] MEDS: PANTOPRAZOLE (EC) 40 MG TAB PO (05:55)
[2017-05-13] MEDS: FUROSEMIDE 20 MG INJ IV (05:55)
[2017-05-13] MEDS: HYDROmorphONE 2 MG TAB PO ×4 (06:03→17:31)
[2017-05-13] MEDS: DRONABINOL 2.5 MG CAP PO ×3 (06:55→17:06)
[2017-05-13] MEDS: POTASSIUM CHLORIDE (SR) 20 MEQ TAB PO ×2 (08:42→22:04)
[2017-05-13] MEDS: ESCITALOPRAM 10 MG TAB PO (08:42)
[2017-05-13] MEDS: morphine (ER) 15 MG TAB PO ×2 (08:42→22:05)
[2017-05-13] MEDS: ATORVASTATIN 20 MG TAB PO (22:05)
[2017-05-14] MEDS: HYDROmorphONE 2 MG TAB PO ×3 (02:50→20:12)
[2017-05-14] MEDS: FUROSEMIDE 20 MG INJ IV (06:03)
[2017-05-14] MEDS: LEVOTHYROXINE 75 MCG TAB PO (06:03)
[2017-05-14] MEDS: PANTOPRAZOLE (EC) 40 MG TAB PO (06:03)
[2017-05-14] MEDS: ESCITALOPRAM 10 MG TAB PO (09:41)
[2017-05-14] MEDS: DRONABINOL 2.5 MG CAP PO ×3 (09:41→17:52)
[2017-05-14] MEDS: POTASSIUM CHLORIDE (SR) 20 MEQ TAB PO ×2 (09:41→21:54)
[2017-05-14] MEDS: morphine (ER) 15 MG TAB PO ×3 (09:42→21:57)
[2017-05-14] MEDS: APIXABAN 5 MG TABLET PO ×2 (09:43→21:54)
[2017-05-14] MEDS: ATORVASTATIN 20 MG TAB PO (21:54)
[2017-05-15] MEDS: HYDROmorphONE 2 MG TAB PO ×2 (04:26→22:48)
[2017-05-15] MEDS: FUROSEMIDE 20 MG INJ IV (05:50)
[2017-05-15] MEDS: PANTOPRAZOLE (EC) 40 MG TAB PO (05:50)
[2017-05-15] MEDS: LEVOTHYROXINE 75 MCG TAB PO (05:51)
[2017-05-15] MEDS: APIXABAN 5 MG TABLET PO ×2 (08:35→20:32)
[2017-05-15] MEDS: POTASSIUM CHLORIDE (SR) 20 MEQ TAB PO ×2 (08:35→20:32)
[2017-05-15] MEDS: ESCITALOPRAM 10 MG TAB PO (08:35)
[2017-05-15] MEDS: DRONABINOL 2.5 MG CAP PO ×3 (08:35→17:47)
[2017-05-15] MEDS: morphine (ER) 15 MG TAB PO ×2 (08:35→20:32)
[2017-05-15] MEDS ORDERED: LEVALBUTEROL (NEB) 0.63 MG/3 ML AMP HHN (15:30)
[2017-05-15 18:22] LABS: ADD MAN DIFF? NO
[2017-05-15 18:26] LABS: BASOPHILS % 0.6 % (0.0-2.0); EOSINOPHILS # 0.2 10^3/ul (0.0-0.5); EOSINOPHILS % 3.7 % (0.0-7.0); HEMATOCRIT 40.3 % (42.0-52.0); HEMOGLOBIN 12.9 g/dl (14.0-18.0); LYMPHOCYTES # 1.5 10^3/ul (0.8-2.9); LYMPHOCYTES % 23.3 % (15.0-51.0); MEAN CORPUSCULAR HEMOGLOBIN 30.4 pg (29.0-33.0); MEAN CORPUSCULAR VOLUME 94.8 fl (82.0-101.0); MEAN PLATELET VOLUME 10.9 fl (7.4-10.4); MONOCYTE # 0.5 10^3/ul (0.3-0.9); NEUTROPHIL # 4.2 10^3/ul (1.6-7.5); NEUTROPHILS % 64.1 % (39.0-77.0); PLATELET COUNT 165 10^3/UL (140-415); RED BLOOD COUNT 4.25 10^6/ul (4.70-6.10); RED CELL DISTRIBUTION WIDTH 14.5 % (11.5-14.5)
[2017-05-15 18:26] LABS: WHITE BLOOD COUNT 6.5 10^3/ul (4.8-10.8)
[2017-05-15] MEDS: LEVALBUTEROL (NEB) 0.63 MG/3 ML AMP HHN (19:51)
[2017-05-15] MEDS: ATORVASTATIN 20 MG TAB PO (20:32)
[2017-05-16] MEDS: LEVALBUTEROL (NEB) 0.63 MG/3 ML AMP HHN ×4 (01:15→19:19)
[2017-05-16] MEDS: HYDROmorphONE 2 MG TAB PO ×4 (03:35→23:23)
[2017-05-16] MEDS: FUROSEMIDE 20 MG INJ IV (06:37)
[2017-05-16] MEDS: DRONABINOL 2.5 MG CAP PO ×3 (06:37→17:20)
[2017-05-16] MEDS: PANTOPRAZOLE (EC) 40 MG TAB PO (06:37)
[2017-05-16] MEDS: LEVOTHYROXINE 75 MCG TAB PO (06:37)
[2017-05-16 08:09] LABS: ADD MAN DIFF? NO
[2017-05-16 08:13] LABS: BASOPHILS % 0.7 % (0.0-2.0); EOSINOPHILS # 0.3 10^3/ul (0.0-0.5); EOSINOPHILS % 4.5 % (0.0-7.0); HEMATOCRIT 40.1 % (42.0-52.0); HEMOGLOBIN 12.8 g/dl (14.0-18.0); LYMPHOCYTES # 1.3 10^3/ul (0.8-2.9); MEAN CORPUSCULAR HGB CONC 31.9 g/dl (32.0-37.0); MEAN CORPUSCULAR VOLUME 94.1 fl (82.0-101.0); MEAN PLATELET VOLUME 11.3 fl (7.4-10.4); MONOCYTE # 0.4 10^3/ul (0.3-0.9); MONOCYTES % 6.6 % (0.0-11.0); PLATELET COUNT 158 10^3/UL (140-415); RED BLOOD COUNT 4.26 10^6/ul (4.70-6.10); RED CELL DISTRIBUTION WIDTH 14.5 % (11.5-14.5)
[2017-05-16 08:13] LABS: WHITE BLOOD COUNT 5.9 10^3/ul (4.8-10.8)
[2017-05-16 08:32] LABS: ANION GAP 12 (8-16); BLOOD UREA NITROGEN 21 mg/dl (7-20); CALCIUM 9.4 mg/dl (8.4-10.2); CARBON DIOXIDE 35 mmol/L (21-31); CHLORIDE 97 mmol/L (97-110); CREATININE 0.98 mg/dl (0.61-1.24); GLUCOSE 94 mg/dl (70-220); POTASSIUM 4.3 mmol/L (3.5-5.1); SODIUM 140 mmol/L (135-144)
[2017-05-16] MEDS: ESCITALOPRAM 10 MG TAB PO (08:38)
[2017-05-16] MEDS: morphine (ER) 15 MG TAB PO ×2 (08:38→20:57)
[2017-05-16] MEDS: POTASSIUM CHLORIDE (SR) 20 MEQ TAB PO ×2 (08:38→20:55)
[2017-05-16] MEDS: APIXABAN 5 MG TABLET PO ×2 (08:38→20:55)
[2017-05-16] MEDS: ATORVASTATIN 20 MG TAB PO (20:54)
[2017-05-16 21:28] LABS: MAGNESIUM 1.5 mg/dl (1.7-2.5)
[2017-05-16 21:35] LABS: B-TYPE NATRIURETIC PEPTIDE 1330 PG/ML (0-125)
[2017-05-17] MEDS: LEVALBUTEROL (NEB) 0.63 MG/3 ML AMP HHN ×4 (01:07→19:44)
[2017-05-17] MEDS: HYDROmorphONE 2 MG TAB PO ×3 (03:41→19:46)
[2017-05-17] MEDS: LEVOTHYROXINE 75 MCG TAB PO (06:30)
[2017-05-17] MEDS: PANTOPRAZOLE (EC) 40 MG TAB PO (06:30)
[2017-05-17] MEDS: DRONABINOL 2.5 MG CAP PO ×3 (06:31→17:30)
[2017-05-17] MEDS: FUROSEMIDE 20 MG INJ IV (06:34)
[2017-05-17] MEDS: POTASSIUM CHLORIDE (SR) 20 MEQ TAB PO ×2 (08:32→20:56)
[2017-05-17] MEDS: ESCITALOPRAM 10 MG TAB PO (08:32)
[2017-05-17] MEDS: APIXABAN 5 MG TABLET PO ×2 (08:34→20:57)
[2017-05-17] MEDS: morphine (ER) 15 MG TAB PO ×2 (08:34→20:57)
[2017-05-17] MEDS: MAGNESIUM SULFATE 4 GM/100 ML 100 ML IVPB (15:08)
[2017-05-17] MEDS: ATORVASTATIN 20 MG TAB PO (20:56)
[2017-05-18] MEDS: LEVALBUTEROL (NEB) 0.63 MG/3 ML AMP HHN ×4 (02:00→20:16)
[2017-05-18] MEDS: LEVOTHYROXINE 75 MCG TAB PO (05:42)
[2017-05-18] MEDS: FUROSEMIDE 20 MG INJ IV (05:42)
[2017-05-18] MEDS: PANTOPRAZOLE (EC) 40 MG TAB PO (05:42)
[2017-05-18] MEDS: ESCITALOPRAM 10 MG TAB PO (08:18)
[2017-05-18] MEDS: POTASSIUM CHLORIDE (SR) 20 MEQ TAB PO ×2 (08:18→21:10)
[2017-05-18] MEDS: morphine (ER) 15 MG TAB PO ×2 (08:19→21:11)
[2017-05-18] MEDS: APIXABAN 5 MG TABLET PO ×2 (08:19→21:10)
[2017-05-18] MEDS: DRONABINOL 2.5 MG CAP PO ×3 (08:19→17:35)
[2017-05-18 10:00] LABS: ANION GAP 12 (8-16); BLOOD UREA NITROGEN 23 mg/dl (7-20); CALCIUM 9.2 mg/dl (8.4-10.2); CARBON DIOXIDE 34 mmol/L (21-31); CHLORIDE 98 mmol/L (97-110); CREATININE 1.04 mg/dl (0.61-1.24); GLUCOSE 109 mg/dl (70-220); MAGNESIUM 1.9 mg/dl (1.7-2.5); POTASSIUM 3.9 mmol/L (3.5-5.1); SODIUM 140 mmol/L (135-144)
[2017-05-18] MEDS: HYDROmorphONE 2 MG TAB PO ×2 (15:58→20:03)
[2017-05-18] MEDS: ATORVASTATIN 20 MG TAB PO (21:10)
[2017-05-19] MEDS: LEVALBUTEROL (NEB) 0.63 MG/3 ML AMP HHN ×4 (01:25→20:20)
[2017-05-19] MEDS: HYDROmorphONE 2 MG TAB PO ×5 (02:53→20:27)
[2017-05-19] MEDS: FUROSEMIDE 20 MG INJ IV (06:06)
[2017-05-19] MEDS: PANTOPRAZOLE (EC) 40 MG TAB PO (06:06)
[2017-05-19] MEDS: LEVOTHYROXINE 75 MCG TAB PO (07:20)
[2017-05-19] MEDS: POTASSIUM CHLORIDE (SR) 20 MEQ TAB PO ×2 (08:58→20:27)
[2017-05-19] MEDS: ESCITALOPRAM 10 MG TAB PO (08:58)
[2017-05-19] MEDS: APIXABAN 5 MG TABLET PO ×2 (08:59→20:26)
[2017-05-19] MEDS: DRONABINOL 2.5 MG CAP PO ×3 (08:59→18:28)
[2017-05-19] MEDS: morphine (ER) 15 MG TAB PO ×2 (09:00→21:25)
[2017-05-19 09:47] LABS: ADD MAN DIFF? NO
[2017-05-19 09:53] LABS: WHITE BLOOD COUNT 5.4 10^3/ul (4.8-10.8)
[2017-05-19 09:53] LABS: BASOPHILS % 0.6 % (0.0-2.0); EOSINOPHILS # 0.3 10^3/ul (0.0-0.5); HEMATOCRIT 38.5 % (42.0-52.0); HEMOGLOBIN 12.2 g/dl (14.0-18.0); LYMPHOCYTES # 1.3 10^3/ul (0.8-2.9); LYMPHOCYTES % 24.7 % (15.0-51.0); MEAN CORPUSCULAR HEMOGLOBIN 30.1 pg (29.0-33.0); MEAN CORPUSCULAR HGB CONC 31.7 g/dl (32.0-37.0); MEAN CORPUSCULAR VOLUME 95.1 fl (82.0-101.0); MEAN PLATELET VOLUME 11.3 fl (7.4-10.4); MONOCYTE # 0.4 10^3/ul (0.3-0.9); NEUTROPHIL # 3.4 10^3/ul (1.6-7.5); NEUTROPHILS % 62.5 % (39.0-77.0); PLATELET COUNT 151 10^3/UL (140-415); RED BLOOD COUNT 4.05 10^6/ul (4.70-6.10); RED CELL DISTRIBUTION WIDTH 14.4 % (11.5-14.5)
[2017-05-19 10:16] LABS: ANION GAP 13 (8-16); BLOOD UREA NITROGEN 23 mg/dl (7-20); CALCIUM 9.3 mg/dl (8.4-10.2); CARBON DIOXIDE 35 mmol/L (21-31); CHLORIDE 97 mmol/L (97-110); GLUCOSE 83 mg/dl (70-220); POTASSIUM 3.8 mmol/L (3.5-5.1); SODIUM 141 mmol/L (135-144)
[2017-05-19] MEDS: ATORVASTATIN 20 MG TAB PO (20:27)
[2017-05-20] MEDS: LEVALBUTEROL (NEB) 0.63 MG/3 ML AMP HHN ×3 (01:34→14:29)
[2017-05-20] MEDS: HYDROmorphONE 2 MG TAB PO ×3 (01:46→15:21)
[2017-05-20] MEDS: FUROSEMIDE 20 MG INJ IV (06:00)
[2017-05-20] MEDS: LEVOTHYROXINE 75 MCG TAB PO (06:25)
[2017-05-20] MEDS: PANTOPRAZOLE (EC) 40 MG TAB PO (06:25)
[2017-05-20] MEDS: DRONABINOL 2.5 MG CAP PO ×2 (06:34→11:39)
[2017-05-20] MEDS: APIXABAN 5 MG TABLET PO (09:43)
[2017-05-20] MEDS: POTASSIUM CHLORIDE (SR) 20 MEQ TAB PO (09:43)
[2017-05-20] MEDS: ESCITALOPRAM 10 MG TAB PO (09:44)
[2017-05-20] MEDS: morphine (ER) 15 MG TAB PO (09:44)
[2017-05-21] MEDS ORDERED: FUROSEMIDE 20 MG TAB PO (09:00)
[2017-05-23 11:22] LABS: NIL 0.05 IU/mL; QUANTIFERON(R)-TB GOLD NEGATIVE (NEGATIVE); TB-NIL 0.01 IU/mL
== END 2017-05-20 17:25 | disposition home health service (06) | DRG 314 ==
LOC: E/R 05-12 02:05 → MS4 05-12 00:49
DX: I31.3 Pericardial effusion (noninflammatory) (principal); I50.33 Acute on chronic diastolic (congestive) heart failure; I48.92 Unspecified atrial flutter; C34.91 Malignant neoplasm of unspecified part of right bronchus or lung; J44.9 Chronic obstructive pulmonary disease, unspecified; D63.0 Anemia in neoplastic disease; I48.0 Paroxysmal atrial fibrillation; E66.9 Obesity, unspecified; Z68.35 Body mass index [BMI] 35.0-35.9, adult; I25.10 Atherosclerotic heart disease of native coronary artery without angina pectoris; E78.5 Hyperlipidemia, unspecified; E03.9 Hypothyroidism, unspecified; Z79.01 Long term (current) use of anticoagulants; Z86.718 Personal history of other venous thrombosis and embolism; Z68.36 Body mass index [BMI] 36.0-36.9, adult; Z87.891 Personal history of nicotine dependence; I11.0 Hypertensive heart disease with heart failure
CPT/HCPCS: 36415; 71045; 71275; 80048; 83735; 83880; 84484; 85014; 85018; 85025; 85610; 85730; 86480; 93005; 93308; 94640; 94664; 96374; 96375; 96376; 97116; 97162; 97530; 99285-25; J1940

== ENCOUNTER 2018-03-29 15:20 | Inpatient (IN) | payer MEDICAID ==
[2018-03-29] MEDS: ALBUTEROL 0.5% (NEB) 2.5 MG/0.5 ML AMP INH (15:44)
[2018-03-29 15:48] LABS: ADD MAN DIFF? NO
[2018-03-29 15:54] LABS: WHITE BLOOD COUNT 8.6 10^3/ul (4.8-10.8)
[2018-03-29 15:54] LABS: BASOPHILS % 0.5 % (0.0-2.0); EOSINOPHILS # 0.1 10^3/ul (0.0-0.5); EOSINOPHILS % 0.8 % (0.0-7.0); HEMATOCRIT 44.4 % (42.0-52.0); HEMOGLOBIN 14.2 g/dl (14.0-18.0); LYMPHOCYTES # 2.3 10^3/ul (0.8-2.9); LYMPHOCYTES % 27.2 % (15.0-51.0); MEAN CORPUSCULAR HEMOGLOBIN 31.5 pg (29.0-33.0); MEAN CORPUSCULAR VOLUME 98.4 fl (82.0-101.0); MEAN PLATELET VOLUME 10.2 fl (7.4-10.4); MONOCYTE # 0.5 10^3/ul (0.3-0.9); MONOCYTES % 6.2 % (0.0-11.0); NEUTROPHIL # 5.6 10^3/ul (1.6-7.5); NEUTROPHILS % 65.1 % (39.0-77.0); PLATELET COUNT 196 10^3/UL (140-415); RED BLOOD COUNT 4.51 10^6/ul (4.70-6.10); RED CELL DISTRIBUTION WIDTH 12.2 % (11.5-14.5)
[2018-03-29] MEDS: METHYLPREDNISOLONE 125 MG INJ IV (16:02)
[2018-03-29 16:13] LABS: ALANINE AMINOTRANSFERASE 15 IU/L (13-69); ALBUMIN 4.5 g/dl (3.3-4.9); ALKALINE PHOSPHATASE 137 IU/L (42-121); ANION GAP 14 (5-13); ASPARTATE AMINO TRANSFERASE 28 IU/L (15-46); BILIRUBIN,INDIRECT 0.6 mg/dl (0-1.1); BILIRUBIN,TOTAL 0.6 mg/dl (0.2-1.3); BLOOD UREA NITROGEN 19 mg/dl (7-20); CARBON DIOXIDE 30 mmol/L (21-31); CHLORIDE 97 mmol/L (97-110); CREATININE 1.03 mg/dl (0.61-1.24); Estimated GFR > 60 mL/min (>60); GLUCOSE 115 mg/dl (70-220); LIPASE 33 U/L (23-300); POTASSIUM 3.2 mmol/L (3.5-5.1); SODIUM 141 mmol/L (135-144); TOTAL PROTEIN 8.3 g/dl (6.1-8.1)
[2018-03-29 16:25] LABS: B-TYPE NATRIURETIC PEPTIDE 3030 PG/ML (0-125); TROPONIN-I < 0.012 ng/ml (0.000-0.120)
[2018-03-29] MEDS: morphine 4 MG/ML VIAL IV (16:26)
[2018-03-29] MEDS: ONDANSETRON 4 MG INJ IV (16:26)
[2018-03-29] MEDS: FUROSEMIDE 40 MG INJ IV (16:47)
[2018-03-29] MEDS: SOD CHLORIDE 0.9% 100 ML (17:21)
[2018-03-29] MEDS: IOHEXOL 100 ML (17:21)
[2018-03-29] MEDS: SOD CHLORIDE 0.9% 500 ML IV ×2 (19:23→20:50)
[2018-03-29 19:45] LABS: ADD UMIC YES; UR ASCORBIC ACID NEGATIVE (NEGATIVE); UR BACTERIA FEW /HPF (NONE SEEN); UR BILIRUBIN (Dip) NEGATIVE (NEGATIVE); UR BLOOD (Dip) 1+ mg/dL (NEGATIVE); UR CLARITY CLOUDY (CLEAR); UR COLOR YELLOW (YELLOW); UR GLUCOSE (Dip) 1+ mg/dL (NEGATIVE); UR KETONES (Dip) TRACE mg/dL (NEGATIVE); UR LEUKOCYTE ESTERASE (Dip) NEGATIVE Leu/ul (NEGATIVE); UR MUCUS FEW /HPF (NONE SEEN); UR NITRITE (Dip) NEGATIVE (NEGATIVE); UR RBC 6 /HPF (0-5); UR SQUAMOUS EPITHELIAL CELL FEW /HPF (FEW); UR TOTAL PROTEIN (Dip) 2+ mg/dl (NEGATIVE); UR UROBILINOGEN (Dip) NEGATIVE (NEGATIVE); UR WBC 5 /HPF (0-5)
[2018-03-29 20:06] LABS: AADO2 Arterial 44.2 mmHg (7.0-24.0); Allen Test ACCEPTAB; Arterial Base Excess 2.4 mmol/L (-3.0-3); Arterial Blood Gas Oxygen Sat 96.8 mmHG (95.0-98.0); Arterial COHb 0.3 % (0.0-3.0); Arterial Fraction of Oxyhgb 96.4 % (93.0-99.0); Arterial HCO3 25.9 mmol/L (22.0-26.0); Arterial MetHb 0.1 % (0.0-1.5); Arterial pCO2 36.1 mmhg (35-45); MODE HFNC VAPOTHERM; Site Right Radial
[2018-03-29] MEDS: SOD CHLORIDE 0.9% 250 ML IV (20:44)
[2018-03-29] MEDS: NORepinephrine 8MG/250 ML (PMX 250 ML IV (22:51)
[2018-03-29] MEDS ORDERED: ACETAMINOPHEN 500 MG TAB PO ×2 (23:30)
[2018-03-30] MEDS: morphine (ER) 15 MG TAB PO ×6 (00:07→23:22)
[2018-03-30] MEDS: CEFEPIME 1GM/50 ML (PMX) 50 ML IVPB ×3 (00:35→20:46)
[2018-03-30 00:49] LABS: TROPONIN-I 0.026 ng/ml (0.000-0.120)
[2018-03-30] MEDS: LEVALBUTEROL (NEB) 0.63 MG/3 ML AMP HHN ×4 (01:57→19:47)
[2018-03-30] MEDS: D5W-0.45 NACL + KCL 30 MEQ 1,000 ML IV ×2 (02:24→20:47)
[2018-03-30 05:14] LABS: ADD MAN DIFF? NO
[2018-03-30 05:25] LABS: WHITE BLOOD COUNT 8.3 10^3/ul (4.8-10.8)
[2018-03-30 05:25] LABS: BASOPHILS % 0.1 % (0.0-2.0); HEMATOCRIT 34.5 % (42.0-52.0); HEMOGLOBIN 11.4 g/dl (14.0-18.0); LYMPHOCYTES # 0.8 10^3/ul (0.8-2.9); LYMPHOCYTES % 10.1 % (15.0-51.0); MEAN CORPUSCULAR HEMOGLOBIN 31.8 pg (29.0-33.0); MEAN CORPUSCULAR VOLUME 96.1 fl (82.0-101.0); MONOCYTE # 0.2 10^3/ul (0.3-0.9); MONOCYTES % 2.3 % (0.0-11.0); NEUTROPHIL # 7.2 10^3/ul (1.6-7.5); PLATELET COUNT 155 10^3/UL (140-415); RED BLOOD COUNT 3.59 10^6/ul (4.70-6.10); RED CELL DISTRIBUTION WIDTH 12.5 % (11.5-14.5)
[2018-03-30 05:38] LABS: CHOL/HDL RATIO 2.9 RATIO; HDL CHOLESTEROL 37 mg/dl (30-78); LDL CHOLESTEROL,CALCULATED 59 mg/dl; TRIGLYCERIDES 65 mg/dl (0-149)
[2018-03-30 05:38] LABS: CHOLESTEROL 109 mg/dl (100-200)
[2018-03-30 05:39] LABS: INR 1.12; PROTIME 14.5 Sec (11.9-14.9); PT RATIO 1.1
[2018-03-30 05:52] LABS: TROPONIN-I 0.032 ng/ml (0.000-0.120)
[2018-03-30 05:54] LABS: ANION GAP 12 (5-13); BLOOD UREA NITROGEN 26 mg/dl (7-20); CALCIUM 9.5 mg/dl (8.4-10.2); CARBON DIOXIDE 28 mmol/L (21-31); CHLORIDE 96 mmol/L (97-110); CREATININE 1.19 mg/dl (0.61-1.24); Estimated GFR > 60 mL/min (>60); GLUCOSE 165 mg/dl (70-220); POTASSIUM 3.8 mmol/L (3.5-5.1); SODIUM 136 mmol/L (135-144)
[2018-03-30] MEDS ORDERED: morphine (ER) 15 MG TAB PO ×2 (06:00→09:00)
[2018-03-30] MEDS ORDERED: morphine (ER) 30 MG TAB PO (06:00)
[2018-03-30] MEDS: PANTOPRAZOLE (EC) 40 MG TAB PO (06:15)
[2018-03-30] MEDS: LEVOTHYROXINE 75 MCG TAB PO (06:15)
[2018-03-30] MEDS ORDERED: LEVOTHYROXINE 75 MCG TAB PO (07:00)
[2018-03-30] MEDS: ESCITALOPRAM 10 MG TAB PO (08:49)
[2018-03-30] MEDS ORDERED: NON-FORMULARY/PATIENT OWN MED (Esomeprazole Mag Trihydrate (Nexium) 40 MG) PO (09:00)
[2018-03-30 14:45] LABS: TROPONIN-I 0.027 ng/ml (0.000-0.120)
[2018-03-31] MEDS: LEVALBUTEROL (NEB) 0.63 MG/3 ML AMP HHN ×6 (02:00→20:19)
[2018-03-31] MEDS: LEVOTHYROXINE 75 MCG TAB PO (06:24)
[2018-03-31] MEDS: PANTOPRAZOLE (EC) 40 MG TAB PO (06:24)
[2018-03-31] MEDS: ENOXAPARIN 30 MG/0.3 ML SYG SC (09:00)
[2018-03-31] MEDS: CEFEPIME 1GM/50 ML (PMX) 50 ML IVPB ×2 (09:14→22:00)
[2018-03-31] MEDS: ESCITALOPRAM 10 MG TAB PO (09:14)
[2018-03-31] MEDS: morphine (ER) 15 MG TAB PO ×3 (10:26→22:00)
[2018-03-31] MEDS: HYDROCODONE/APAP (5/325) TAB PO (15:01)
[2018-03-31] MEDS: D5W-0.45 NACL + KCL 30 MEQ 1,000 ML IV (17:37)
[2018-04-01] MEDS: HYDROCODONE/APAP (5/325) TAB PO (04:47)
[2018-04-01] MEDS: ONDANSETRON 4 MG INJ IV (04:47)
[2018-04-01] MEDS: LEVOTHYROXINE 75 MCG TAB PO (06:04)
[2018-04-01] MEDS: PANTOPRAZOLE (EC) 40 MG TAB PO (06:04)
[2018-04-01] MEDS: LEVALBUTEROL (NEB) 0.63 MG/3 ML AMP HHN ×2 (07:42→14:00)
[2018-04-01] MEDS: CEFEPIME 1GM/50 ML (PMX) 50 ML IVPB (08:16)
[2018-04-01] MEDS: ESCITALOPRAM 10 MG TAB PO (08:17)
[2018-04-01] MEDS: ENOXAPARIN 30 MG/0.3 ML SYG SC (08:24)
[2018-04-01] MEDS: morphine (ER) 15 MG TAB PO ×2 (08:44→13:28)
== END 2018-04-01 17:08 | disposition home or self-care (01) | DRG 208 ==
LOC: ICU 17:08 → E/R 15:20 → TEL 03-30 21:09
PROC: 05HM33Z Insertion of Infusion Device into Right Internal Jugular Vein, Percutaneous Approach (ICD-10-PCS; 2018-03-29)
PROC: B543ZZA Ultrasonography of Right Jugular Veins, Guidance (ICD-10-PCS; 2018-03-29)
PROC: 4A033R1 Measurement of Arterial Saturation, Peripheral, Percutaneous Approach (ICD-10-PCS; 2018-03-29)
PROC: 5A1935Z Respiratory Ventilation, Less than 24 Consecutive Hours (ICD-10-PCS; principal; 2018-03-30)
PROC: 0BH17EZ Insertion of Endotracheal Airway into Trachea, Via Natural or Artificial Opening (ICD-10-PCS; 2018-03-30)
DX: J96.01 Acute respiratory failure with hypoxia (principal); I31.3 Pericardial effusion (noninflammatory); C34.90 Malignant neoplasm of unspecified part of unspecified bronchus or lung; C79.9 Secondary malignant neoplasm of unspecified site; J96.02 Acute respiratory failure with hypercapnia; J44.9 Chronic obstructive pulmonary disease, unspecified; I50.9 Heart failure, unspecified; E78.5 Hyperlipidemia, unspecified; D63.0 Anemia in neoplastic disease; I25.10 Atherosclerotic heart disease of native coronary artery without angina pectoris; E03.9 Hypothyroidism, unspecified; I48.0 Paroxysmal atrial fibrillation; F32.9 Major depressive disorder, single episode, unspecified; R00.0 Tachycardia, unspecified; I95.9 Hypotension, unspecified; Z89.021 Acquired absence of right finger(s); Z90.49 Acquired absence of other specified parts of digestive tract; Z87.891 Personal history of nicotine dependence; Z86.718 Personal history of other venous thrombosis and embolism
CPT/HCPCS: 36600; 71045; 71275; 80048; 80061; 80076; 81001; 82803; 83690; 83880; 84443; 84484; 85025; 85610; 85730; 87070; 87400; 93005; 93306; 94640; 94644; 94660; 96374; 96375; 99291-25